=== PATIENT | female | born 1950 | race Caucasian/White ===

== ENCOUNTER 2023-05-17 18:37 | Inpatient (IN) | payer MEDICARE, MEDICAID, SELFPAY ==
--- NOTE | ~2023-05-17 | CT_ITS ---
EXAMINATION: CT brain wo con DATE: 05/18/2023 00:14 INDICATION: Right arm and leg not working right. TECHNIQUE: Computed tomography (CT) of the head was performed without intravenous contrast. The dose- length product was 756.00 mGy-cm. Automated exposure control and iterative reconstruction technique w ere employed. COMPARISON: None FINDINGS: Brain parenchymal volume is normal for age. There are scattered mild periventricular and linares bcortical white matter changes, most likely related to small vessel ischemic disease (microangiopathy ). No ventriculomegaly or midline shift. There is a large right periorbital hematoma with exophthalmo s of the right orbit. There is right orbital preseptal and postseptal fat stranding with hyperattenua tion which may be due to hematoma or edema. Possible superior ophthalmic vein enlargement. There is a right orbital floor fracture with herniation of fat and partial displacement of the inferi or rectus muscle into the maxillary sinus. IMPRESSION: 1. No acute intracranial abnormality. 2: Right orbital preseptal and postseptal fat stranding with hyperattenuation, suspicious for hematom a/edema. There is right periorbital soft tissue swelling with right orbital exophthalmos. Right orbit al floor fracture with herniation of fat and inferior rectus muscle. Reviewed, dictated and finalized at location A. ERCIAL PRODUCER IMPRESSION: 1. No acute intracranial abnormality. 2: Right orbital preseptal and postseptal fat stranding with hyperattenuation, suspicious for hematoma/edema. There is right periorbital soft tissue swelling with right orbital exophthalmos. Right orbital floor fracture with herniation o f fat and inferior rectus muscle.
--- NOTE | ~2023-05-17 | XR_ITS ---
EXAMINATION: XR chest 2V 05/18/2023 09:03 INDICATION: CVA. History of COPD. PROCEDURE: AP view of the chest COMPARISON: No prior studies for comparison. FINDINGS: The lungs are clear. Mild cardiomegaly. Pacemaker leads are in expected position. There are no pleural effusions. There is no pneumothorax suspected. IMPRESSION: 1: NO ACUTE CARDIOPULMONARY DISEASE. Reviewed, dictated and finalized at location A. ERCIAL SEWING INSTRUCTOR
--- NOTE | ~2023-05-17 | US_ITS ---
EXAMINATION: US carotid duplex BI DATE: 05/19/2023 12:19 INDICATION: CVA TECHNIQUE: Grayscale, color Doppler, and pulsed Doppler images of the cervical carotid arteries were obtained. The degree of vessel stenosis is placed in one of the following categories: normal, <50%, 5 0-69%, >=70% but less than near-occlusion, near-occlusion, or total occlusion. Note that percent sten osis relative to normal distal artery lumen diameter is indirectly measured from velocity measurement s as described by Gunnar, et al. Radiology 2003; 229:340-346. Notes: Normal: Peak systolic velocity <125 centimeters/sec and no plaque <50%. Peak systolic velocity <125 ( EDV <40; ICA/CCA PSV ratio <2.0; used these factors only a tandem lesions or low cardiac output or co ntralateral disease) 50-69 %: PSV 125-230 (EDV 40-100; ratio 2-4) >= 70% but less than near occlusion: PSV greater than 230 (EDV > 100; ratio> 4.0) Near Occlusion: PSV that is variable; markedly narrowed lumen Occlusion: Absent flow on color/spectral Doppler and no lumen on bradford scale. COMPARISON: None. FINDINGS: RIGHT: The right common carotid artery (CCA) peak systolic velocity (PSV) is 90 cm/s. The right internal car otid artery (ICA) PSV is 160 cm/s. The right ICA end-diastolic velocity (EDV) is 25 cm/s. The right I CA/CCA PSV ratio is 2.1. The external carotid artery (ECA) PSV is 82 cm/s. There is antegrade flow in the right vertebral artery. LEFT: The left CCA PSV is 109 cm/s. The left ICA PSV is 124 cm/s. The left ICA EDV is 26 cm/s. The left ICA /CCA PSV ratio is 1.2. The ECA PSV is 232 cm/s. There is antegrade flow in the left vertebral artery . IMPRESSION: 1. 50-69% stenosis in the right internal carotid artery by sonographic criteria. 2. Less than 50% stenosis in the left internal carotid artery by sonographic criteria. Reviewed, dictated and finalized at location A. T FINISHER IMPRESSION: 1. 50-69% stenosis in the right internal carotid artery by sonographic criteria . 2. Less than 50% stenosis in the left internal carotid artery by sonographic cr iteria.
[2023-05-17 18:38] VITALS: BP 142/67; PULSE 91; RESP 18; TEMP 36.1; O2SAT 94
[2023-05-17 22:49] VITALS: PULSE 93; RESP 16; O2SAT 92
[2023-05-17 23:00] VITALS: PULSE 82; RESP 19; O2SAT 94
[2023-05-17 23:15] VITALS: PULSE 90; RESP 17
--- NOTE | 2023-05-17 23:26 | PC.NURSE ---
ct non con per erp lucien hitchcock
[2023-05-17 23:51] VITALS: PULSE 90; RESP 22
[2023-05-18] VITALS (24 sets, daily range): BP systolic 130–190; BP diastolic 59–88; PULSE 79–97; RESP 12–29; TEMP 36.2–36.9; O2SAT 91–97
--- NOTE | 2023-05-18 | ECHO_ITS ---
Patient Info Name: Vanita Blackwood Age: 72 years : 1950 Gender: Female Ht: 66 in Wt: 149 lbs BSA: 1.78 m2 HR: 81 bpm BP: 171 / 65 mmHg Heart Rhythm: Sinus Rhythm Technical Quality: Fair Exam Date: 05/18/2023 11:24 AM Exam Location: Echo Lab Exam Room: [place] [address] Patient Status: Inpatient Admit Date: 05/18/2023 Staff Ordering Physician: Shell Oh Information Technology Consultant: Vanita Montes RDCS Attending Provider: Shell Oh Referring Physician: Adriano LEZAMA; Exam Type: CA echo doppler color flow Study Info Indications - RIGHT SIDE WEAKNESS CVA HX/O AFIB PPM Complete two-dimensional, color flow and Doppler transthoracic echocardiogram is performed. Summary 1. Complete two-dimensional, color flow and Doppler transthoracic echocardiogram is performed. 2. Left ventricular chamber dimension is normal. 3. Left ventricular systolic function is normal, estimated at >70%. 4. There is mildly increased left ventricular wall thickness. 5. The left ventricular diastolic function is grade I diastolic dysfunction. 6. Left atrial chamber dimension is mildly enlarged. 7. There is incomplete evaluation of the study but suspect at least mild mitral valve stenosis. 8. There is mild mitral valve regurgitation. 9. There is mild tricuspid valve regurgitation. 10. Moderate pulmonary hypertension, estimated pulmonary arterial systolic pressure is 51 mmHg. Left Ventricle Left ventricular chamber dimension is normal. Left ventricular systolic function is normal, estimated at >70%. There is mildly increased left ventricular wall thickness. The left ventricular diastolic function is grade I diastolic dysfunction. Right Ventricle Right ventricular chamber dimension is normal. Right ventricular systolic function is normal. Linear artifact in right ventricle suggestive of catheter(s), pacemaker lead(s), or ICD lead(s). Left Atria Left atrial chamber dimension is mildly enlarged. Right Atria Right atrial chamber dimension is mildly enlarged. Linear artifact in the right atrium suggestive of catheter(s), pacemaker lead(s), or ICD lead(s). Aortic Valve The aortic valve is trileaflet. There is mild aortic valve sclerosis. There is no aortic valve stenosis. There is no aortic valve regurgitation. Pulmonic Valve The pulmonic valve is not well visualized. There is trace pulmonic regurgitation. Mitral Valve The mitral valve has thickened leaflets. There is incomplete evaluation of the study but suspect at least mild mitral valve stenosis. There is mild mitral valve regurgitation. There is mild mitral valve calcification. The mitral valve annulus is severely calcified. Tricuspid Valve The tricuspid valve leaflets are normal. There is mild tricuspid valve regurgitation. Moderate pulmonary hypertension, estimated pulmonary arterial systolic pressure is 51 mmHg. Pericardium/Pleural The pericardium appears normal. There is trivial pericardial effusion. Inferior Vena Cava Normal inferior vena cava with >50% collapse upon inspiration consistent with normal right atrial pressure, 5 mmHg. Aorta The aortic root size at the sinus of Valsalva is normal. There is mild aortic atherosclerosis. Left Ventricular Outflow Tract Name Value Normal LVOT 2D LVOT Diameter 2.0 cm
--- NOTE | 2023-05-18 01:51 | ECG_ITS ---
Measurements Intervals [place] Rate: 81 P: 75 NH: 201 QRS: -15 QRSD: 87 T: 76 QT: 401 QTc: 468 Interpretive Statements SINUS RHYTHM WITH FIRST-DEGREE AV BLOCK NONSPECIFIC T-WAVE ABNORMALITY BORDERLINE ECG NO PREVIOUS ECG AVAILABLE FOR COMPARISON Electronically Signed On 05-18-2023 14:41:49 RETAIL STORE ASSOCIATE by Jose Martin Ruelas M.D.
[2023-05-18 02:29] LABS: Basophils Percent Auto 0.5 % (0.2-1.2); Eosinophils Absolute Auto 0.1 K/mm3 (0-0.3); Eosinophils Percent Auto 1.5 % (0-4.4); Hematocrit 37.2 % (37.0-47.0); Hemoglobin 11.6 g/dL (12.0-15.0); Immature Granulocyte Absolute 0.06 K/mm3 (0.00-0.031); Immature Granulocyte Percent A 0.8 % (0-0.5); Lymphocytes Absolute Auto 2.45 K/mm3 (0.9-3.2); Lymphocytes Percent Auto 32.6 % (18.3-44.2); Mean Corpuscular HGB Conc 31.2 g/dl (32-36); Mean Corpuscular Hemoglobin 29.9 pg (26-34); Mean Corpuscular Volume 95.9 fl (80-100); Mean Platelet Volume 10.5 fl (7.4-10.4); Monocytes Absolute Auto 0.4 K/mm3 (0.1-0.6); Monocytes Percent Auto 5.2 % (2.6-8.5); Neutrophils Absolute Auto 4.5 K/mm3 (1.3-6.7); Neutrophils Percent Auto 59.4 % (45.5-73.1); Platelet Count Result 225 k/mm3 (150-375); Red Blood Count 3.88 M/mm3 (4.2-5.4); Red Cell Distribution Width 15.4 % (11.5-14.5); White Blood Count 7.5 K/mm3 (4.5-10.0)
[2023-05-18 02:40] LABS: INR 0.9
[2023-05-18 02:41] LABS: Alanine Aminotransferase 21 U/L (6-35); Albumin Level 3.6 g/dL (3.5-5.1); Alkaline Phosphatase 151 U/L (38-126); Anion Gap 3 mmol/L (8-16); Aspartate Amino Transferase 57 U/L (14-36); Bilirubin,Total 0.5 mg/dL (0.2-1.3); Blood Urea Nitrogen 17 mg/dL (7-17); Calcium 9.7 mg/dL (8.4-10.2); Carbon Dioxide 32 mmol/L (22-30); Chloride 105 mmol/L (98-107); Estimated CRCL calculation 33 ml/min; Estimated Glomerular Filt Rate 40; Glucose 112 mg/dL (65-110); Potassium 4.3 mmol/L (3.4-5.0); Sodium 140 mmol/L (137-145)
[2023-05-18 02:50] LABS: Partial Thromboplastin Time 31.5 SECONDS (22.3-36.8)
[2023-05-18 02:53] LABS: Appearance Urine Turbid (Clear); Bacteria Urine 4+ /hpf; Bilirubin Urine Negative (Negative); Blood Urine Negative (Negative); Color Urine Yellow (Yellow); Glucose Urine UA Negative (Negative); Ketones Urine Negative (Negative); Leukocyte Esterase Ur Trace LEU/UL (Negative); Need Manual Microscopic Reviewed; Nitrate Urine Negative (Negative); Non Pathogenic Casts 0-2; Protein Urine 3+ mg/dL (Negative); RBC Urine >100 /hpf (0-2); Specific Grav Ur 1.016 (1.001-1.035); Squamous Epithelial Cell Urine Few /hpf (Few); Urobilinogen Urine 0.2 mg/dL (<2.0); WBC Urine 51-100 /hpf; pH Urine 5.5 (5.0-9.0)
[2023-05-18 02:54] LABS: Add Urine Microscopic? YES
--- NOTE | 2023-05-18 04:24 | ED.GENADULT ---
HPI - General Adult General Chief complaint: Fall Stated complaint: vertigo/htn/ extremity swelling Time Seen by Provider: 05/18/23 01:12 History of Present Illness HPI narrative: This is a 72-year-old female presenting ED with chief complaint of right-sided weakness. Patient's says that at 11:00 a.m. she has. Past an episode of vertigo. Then when she got up she was unable to move her right arm and right leg. She was able to get to her bed and laid down but when she woke the symptoms had not resolved. She then came to the emergency room for evaluation. Patient is currently complaining of right arm clumsiness and right leg weakness. Related Data Home Medications Medication Instructions Recorded Confirmed No Home Medications 05/18/23 Allergies Allergy/AdvReac Type Severity Reaction Status Date / Time budesonide Allergy Anaphylaxis Verified 05/18/23 04:17 iohexol Allergy Anaphylaxis Verified 05/18/23 04:17 [From contrast - CT, X-RAY] Exam Narrative: APPEARANCE: No apparent distress. Head: atraumatic. EYES: EOMI, NOSE: Atraumatic NECK: Trachea midline RESPIRATORY: No increased rate of breathing CARDIOVASCULAR: RRR, edema of the right upper extremity ABDOMINAL: Non-distended MUSCULOSKELETAl: No obvious deformities NEURO: Alert.[facility] blood SKIN:: Warm, dry. Normal color PSYCHIATRIC: Normal affect NIH Stroke Scale/Score (NIHSS) from [email or web address] on 05/18/2023 All calculations should be rechecked by clinician prior to use RESULT SUMMARY: 4 points NIH Stroke Scale INPUTS: 1A: Level of consciousness ?> 0 = Alert; keenly responsive 1B: Ask month and age ?> 0 = Both questions right 1C: 'Blink eyes' & 'squeeze hands' ?> 0 = Performs both tasks 2: Horizontal extraocular movements ?> 0 = Normal 3: Visual simmons ?> 0 = No visual loss 4: Facial palsy ?> 0 = Normal symmetry 5A: Left arm motor drift ?> 0 = No drift for 10 seconds 5B: Right arm motor drift ?> 1 = Drift, but doesn't hit bed 6A: Left leg motor drift ?> 0 = No drift for 5 seconds 6B: Right leg motor drift ?> 2 = Some effort against gravity 7: Limb Ataxia ?> 1 = Ataxia in 1 Limb 8: Sensation ?> 0 = Normal; no sensory loss 9: Language/aphasia ?> 0 = Normal; no aphasia 10: Dysarthria ?> 0 = Normal 11: Extinction/inattention ?> 0 = No abnormality Course Vital Signs Vital signs: Vital Signs Temperature 97.0 F L 05/17/23 18:38 Pulse Rate 91 05/17/23 18:38 Respiratory Rate 18 05/17/23 18:38 Blood Pressure 142/67 H 05/17/23 18:38 Pulse Oximetry 94 05/17/23 18:38 Oxygen Delivery Room Air 05/17/23 18:38 Temperature 97.0 F L 05/17/23 18:38 Pulse Rate 91 05/17/23 18:38 Respiratory Rate 18 05/17/23 18:38 Blood Pressure 142/67 H 05/17/23 18:38 Pulse Oximetry 94 05/17/23 18:38 Oxygen Delivery Room Air 05/17/23 18:38 Medical Decision Making MDM Narrative Medical decision making narrative: -Course: 72-year-old female presenting ED with chief complaint right-sided weakness. NIH of 4 on arrival. last known normal 11:[address] showed no acute findings. She does have some chronic issues of her right eye that has been going on since last August. Essentially blind in that eye. Patient refused CTA due to contrast allergy. Patient was given aspirin will be admitted to the hospital for further management. Patient also have UTI. Started on ceftriaxone. -DDX includes but is not limited to: TIA, CVA -Co-morbidities complicating care: patient stopped taking all prescribed medications about year ago. History of cancer -Independent interpretation of studies: CBC normal. Metabolic panel within normal limits. Urine not indicative infection. CT the head showed no intracranial findings. Chronic findings of the right eye noted. Independent EKG interpretation: Rhythm [sinus], Rate [81], [place] -[normal], [place] -[normal], QRS [narrow], QTC [normal], T waves -[negative for concerning inversions], ST Segments
[2023-05-18] MEDS: ONDANSETRON INJ 4 MG/2 ML VIAL IV PUSH (05:29)
--- NOTE | 2023-05-18 08:13 | PM.IMHP ---
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 Pt's primary care for all medical needs is usually performed at [facility], so we do not have a full history on her and one was not done to this point by the ER staff. The pt endorses to me her history and states that she chose to stop all medical care last September after [facility] refused to fix my eye. This includes medications for her DM, HTN, HLD, and her Chemotherapy. Her current HPI of presenting illness is told that her last known well was at 11:00AM on 05/17/23 when she was sitting at home in her chair and she started having what she calls a dizzy spell. She attempted to get up and she was weak in the right leg and right arm causing her to fall to her knees. She was eventually able to get to her bed to lie down, but when she woke up hours later she had lost control of her right arm and right leg and could not bear weight on the right leg without again falling to her knees. She called 911 for transport to the ER. She tells me that she has had these dizzy spells for the past week and a half, and has had them everyday. The duration of the dizziness has been up to 5 hours, it is relieved usually by laying down, and it is accompanied by a headache and nausea. This time it did not go away and it concerned her prompting her presentation. In the ER, CT Brain was performed and the results are pending still. Pt was not agreeable to having CTA brain and carotids done as she has had reported anaphylaxis to contrast in the past. ED physician ordered an MRI and consulted Neurology and presented her to the Hospitalist service at this time for admission and further management. Currently she is resting on her left side and does not appear to be in any acute distress. She does acknowledge that she has a headache and remains dizzy. Her labs in ER were significant for UTI that she received a dose of Rocephin for and culture is pending. The remainder of her labs do not appear remarkable that were performed in the ER including glucose, renal function is only mildly out of normal range and she has only a mild anemia. Electrolytes are unremarkable. EKG shows NSR 81 bpm without any ectopy or ischemia. This pt is pleasant, and acknowledges that she knows she is terminal and that she wants to have a good quality of life with what she has left, but she is noted to be a Full Code in the setting that she herself acknowledges she is terminal and stopped all of her medications 7 months ago for all chronic health conditions. I had a kayla conversation with her regarding this and she acknowledges that she doesn't want to be on a lot of medications. I advised that she has multiple chronic conditions that will require treatment with multiple different medications in order to control and to maintain the condition as well as to decrease her risk factors. The pt states that she is agreeable to receiving treatment here and wants to remain a full code. I think she would best be served by Hospice or Palliative care as her prognosis is very poor, however, we will comply with pt's wishes and start full treatment at this time. She is aware that Full Code means CPR and Intubation if necessary. Review of Systems Review of Systems: All systems reviewed & are unremarkable except as noted in HPI and below [facility] Past Medical History Medical History (Updated 05/18/23 @ 09:01 by DONYA Villalpando) Chronic kidney disease Diabetes mellitus Hyperl
--- NOTE | 2023-05-18 08:21 | ADMGEN ---
This patient, Vanita Blackwood, was admitted to Virtual Bed 3rd Floor-2. Patient/family oriented to hospital policies and general routines including ID bracelet, bed and alarms, visiting hours, pain management, procedures, bathroom and other care routines, personal items, smoking policy, room service/diet, and visiting hours. Information on how to activate the Rapid Response Team has been discussed. Patient/Family are encouraged to report perceived risks to care and to ask questions if they do not understand what they are told or what they should do. currently in ED, will be transferred to floor soon.
[2023-05-18 08:50] LABS: Cholesterol 211 mg/dL (0-200); HDL Direct 36 mg/dL; Triglycerides 247 mg/dL (<150)
[2023-05-18 09:02] LABS: Glucose Point of Care 127 mg/dl (65-105)
[2023-05-18 09:04] LABS: LDL Cholesterol Direct 116 mg/dL
[2023-05-18 09:07] LABS: Troponin I 0.029 ng/mL (0.000-0.034)
[2023-05-18 10:01] LABS: Folic Acid 15.4 ng/mL (2.76->20)
[2023-05-18] MEDS: SODIUM CHLORIDE 0.9% IV 1,000 ML 100 ML IV CONT (11:06)
[2023-05-18 11:25] LABS: Vitamin D 25 Hydroxy < 12.8 ng/mL
--- NOTE | 2023-05-18 11:49 | PC.NURSE ---
Pt is NPO until swallow study, per hospitalist, PO meds were held this AM.
--- NOTE | 2023-05-18 13:48 | PCSTNOTE ---
Bedside swallowing evaluation completed. Patient was seen sitting upright in bed with head of bed elevated. Cursory oral peripheral examination results within functional limits. Per patient she eats and drinks anything she likes without difficulty at home. Trials of thin liquid by spoon and straw; pureed consistency by spoon, and solid consistency by hand (sandwich) were presented and patient was able to chew and swallow without difficulty. No signs of aspiration observed. Based on these findings the following recommendations are made: regular diet (level 7) with thin liquids (level 0). No further speech therapy is recommended. Please note that silent aspiration cannot be ruled out at bedside and can be evaluated with a modified barium swallow study. Thank you for the referral of this patient.
--- NOTE | 2023-05-18 13:53 | ADMGEN ---
This patient, Vanita Blackwood, was admitted to Medical Room 254-01. Patient/family oriented to hospital policies and general routines including ID bracelet, bed and alarms, visiting hours, pain management, procedures, bathroom and other care routines, personal items, smoking policy, room service/diet, and visiting hours. Information on how to activate the Rapid Response Team has been discussed. Patient/Family are encouraged to report perceived risks to care and to ask questions if they do not understand what they are told or what they should do.
[2023-05-18] MEDS: IPRATROPIUM 0.5 MG/ALBUTEROL SULFATE 2.5 MG AMPUL.NEB 3 ML INHALATION ×2 (13:57→20:52)
--- NOTE | 2023-05-18 14:11 | PCOTNOTE ---
The patient initial evaluation was not able to be completed on 05/18/2023 due to patient just arriving on floor with high BP per RN. RN notes best to wait until tomorrow to try and let administrative aide with leveling BP. Will plan to complete evaluation when able.
[2023-05-18] MEDS: hydrALAZINE HCL 20 MG/ML VIAL 10 MG IV PUSH (14:55)
[2023-05-18 15:06] LABS: Glucose Point of Care 139 mg/dl (65-105)
--- NOTE | 2023-05-18 15:11 | WPDNEURCNPN ---
Assessment and Plan Assessment and plan (1) Metastatic disease: Code(s): C79.9 - Secondary malignant neoplasm of unspecified site Status: Chronic (2) Diabetes mellitus: Code(s): E11.9 - Type 2 diabetes mellitus without complications Status: Chronic (3) Chronic kidney disease: Code(s): N18.9 - Chronic kidney disease, unspecified Status: Chronic (4) Acute CVA (cerebrovascular accident): Code(s): I63.9 - Cerebral infarction, unspecified Status: Acute Plan 1. CVA 2. By history metastatic disease for which patient has been receiving treatment at [facility] with last chemotherapy in September of 2022 but none since then decision regarding the discontinuation of the medication 3. Diabetes mellitus with history of no treatment since September of last year 4. Chronic renal disease with recent acute urinary tract infection. We can consider the MRI of the brain if she allows for the sake of the status of the brain itself but otherwise she should be referred to the hospice further management accordingly Consult date: 05/18/23 HPI: Vanita Blackwood is a 72 year old femaleAdmitted to the hospital through the emergency room for the complaints of right-sided weakness since 11:00 a.m. reportedly when she got up she was unable to move her right upper extremity and right lower extremity she was able to get to her bed and laid down but when she woke up symptoms had not resolved when she came to the emergency room she was complaining of right upper extremity clumsiness and right lower extremity weakness. She was not taking any medications. An evaluation in the emergency room was without any abnormal general physical findings her vital signs were normal. Patient had not taken any medication for almost a year with history of cancer on evaluation she was found to have UTI, negative CT scan of the head, normal EKG, without any atrial fibrillation. As per the review of the medical record patient has ongoing history of chronic kidney disease with history of renal tubular close his, metastatic breast cancer with spread to the bones, liver, lung, and behind the right eye leaving her legally blind in the right eye with chronic droop of the right upper eyelid she does have ongoing history of chronic tobacco abuse and again read documented that she has stopped all the medication September of 2022. As per the review of the further notes she attempted to get up and she was weak in her right lower extremity right upper extremity causing her to fall to her knees she was eventually able to get to her bed to lie down but when she woke up hours later she had lost control of her right upper and right lower extremity and was unable to bear weight on the right lower extremity she has had several dizzy spells in the past which are usually relieved by laying down but accompanied by the headaches and nausea CTA could not be done as she was not agreeable with CT of the head was performed the CTA was not done because she was probably allergic to contrast as per her statement she did complain of headache and dizziness at the time of initial evaluation he was found to have UTI was started on Rocephin patient acknowledged that she has determined but she wants to have good quality of life states she is a full code status and her all medications were discontinued about 7 months ago she does have a history of 50 years smoked, currently everyday smoker, she is not allergic to any medications, vital signs are stable, and initial exam in the ER and subsequently documented to have decreased strength on the right side. The of the head documented right orbital preseptal and postseptal fat stranding with hyperattenuation suspicious for hematoma or edema but with a right periorbital soft tissue swelling and right orbital exophthalmos with right orbital floor fracture with herniation of fat and inferior rectus muscle. REPLACED BY [facility] Past Medical History Medical History (Reviewed
--- NOTE | 2023-05-18 15:13 | PCPTNOTE ---
The patient initial evaluation was not able to be completed on 05/18/2023 due to patient just arriving on floor with high BP per RN. RN notes best to wait until tomorrow to try and let surgical aides teacher with leveling BP. Will plan to complete evaluation when able.
[2023-05-18 20:20] LABS: Glucose Point of Care 165 mg/dl (65-105)
[2023-05-19] VITALS (18 sets, daily range): BP systolic 146–175; BP diastolic 50–60; PULSE 72–108; RESP 16–20; TEMP 35.9–36.3; O2SAT 91–96
[2023-05-19] MEDS: SODIUM CHLORIDE 0.9% IV 1,000 ML 100 ML IV CONT ×2 (00:23→11:47)
[2023-05-19 00:25] LABS: Glucose Point of Care 122 mg/dl (65-105)
[2023-05-19] MEDS: IPRATROPIUM 0.5 MG/ALBUTEROL SULFATE 2.5 MG AMPUL.NEB 3 ML INHALATION ×4 (02:30→19:22)
[2023-05-19 05:15] LABS: Basophils Percent Auto 0.4 % (0.2-1.2); Eosinophils Absolute Auto 0.1 K/mm3 (0-0.3); Eosinophils Percent Auto 1.4 % (0-4.4); Hematocrit 31.7 % (37.0-47.0); Hemoglobin 9.6 g/dL (12.0-15.0); Immature Granulocyte Absolute 0.04 K/mm3 (0.00-0.031); Immature Granulocyte Percent A 0.8 % (0-0.5); Lymphocytes Percent Auto 29.3 % (18.3-44.2); Mean Corpuscular HGB Conc 30.3 g/dl (32-36); Mean Corpuscular Hemoglobin 29.9 pg (26-34); Mean Corpuscular Volume 98.8 fl (80-100); Mean Platelet Volume 10.5 fl (7.4-10.4); Monocytes Absolute Auto 0.2 K/mm3 (0.1-0.6); Monocytes Percent Auto 4.5 % (2.6-8.5); Neutrophils Absolute Auto 3.3 K/mm3 (1.3-6.7); Neutrophils Percent Auto 63.6 % (45.5-73.1); Platelet Count Result 176 k/mm3 (150-375); Red Blood Count 3.21 M/mm3 (4.2-5.4); Red Cell Distribution Width 15.3 % (11.5-14.5); White Blood Count 5.1 K/mm3 (4.5-10.0)
[2023-05-19 05:33] LABS: Alanine Aminotransferase 16 U/L (6-35); Alkaline Phosphatase 125 U/L (38-126); Anion Gap 8 mmol/L (8-16); Aspartate Amino Transferase 46 U/L (14-36); Bilirubin,Total 0.4 mg/dL (0.2-1.3); Blood Urea Nitrogen 17 mg/dL (7-17); Calcium 8.6 mg/dL (8.4-10.2); Carbon Dioxide 22 mmol/L (22-30); Chloride 107 mmol/L (98-107); Estimated CRCL calculation 32 ml/min; Estimated Glomerular Filt Rate 40; Glucose 111 mg/dL (65-110); Magnesium 1.9 mg/dL (1.6-2.3); Potassium 3.5 mmol/L (3.4-5.0); Sodium 137 mmol/L (137-145)
[2023-05-19 06:41] LABS: Glucose Point of Care 108 mg/dl (65-105)
[2023-05-19] MEDS: ATORVASTATIN 40 MG TABLET 80 MG PO (08:22)
[2023-05-19] MEDS: NICOTINE (*PBKC) 21 MG PATCH 1 PATCH TRANSDERM (08:22)
--- NOTE | 2023-05-19 08:33 | P.PNIM_ITS ---
Progress Note: A&P Assessment and Plan (1) Acute CVA (cerebrovascular accident): Code(s): I63.9 - Cerebral infarction, unspecified Status: Acute Assessment and Plan: * Last known well 11:00 AM on 05/17/23. Presented to ER 13 hours later. * Telemetry * Neuro checks q4 Hrs * Consult Neurology * MRI brain and brainstem * ECHO * Carotid Dopplers * CXR ordered * Pt refused CTA head and neck as she has anaphylaxis to contrast. * Check fasting lipids, A1C, B12, Vitamin D, Trop and TSH * Allow permissive hypertension for now. * Bedside swallow eval with speech. * PT and OT evaluation * NPO for now. * Start IVF of NS at 100 ml/hr. * Start High intensity statin with Atorvastatin 80 mg po daily. * Start ASA 81 mg daily after results of CT brain without contrast result. * Defer to Neurology the starting of Plavix, but suspect it will be appropriate for pt. * Pt with overall poor prognosis. 05/19: * Started patient on plavix * Plan is to discharge to home on palliative care * Past swallow evaluation resumed diet (2) Tobacco abuse: Code(s): Z72.0 - Tobacco use Status: Chronic Assessment and Plan: * Nicotine Patch ordered. (3) Metastatic disease: Code(s): C79.9 - Secondary malignant neoplasm of unspecified site Status: Chronic Assessment and Plan: * Unknown primary site, but she states she has cancer in 15 different places. In short, her history describes locations of breast, liver, lung, bone and behind the right eye. * Pt reports prior treatment at [facility] w/last chemo treatment in September 2022. None since. * Will request pt records from [facility]. (4) Diabetes mellitus: Code(s): E11.9 - Type 2 diabetes mellitus without complications Status: Chronic Assessment and Plan: * Accu-Cheks a.c. HS * sliding scale insulin * hold oral diabetic medications * resume patient's home long-acting * Hemoglobin A1c pending * Diabetic diet * consult to dietitian * encourage lifestyle modifications and weight loss * Optimize Jf inhibitors and statins. * Watch for hypoglycemia/hypoglycemic protocol ordered (5) Hyperlipidemia: Code(s): E78.5 - Hyperlipidemia, unspecified Status: Chronic Assessment and Plan: * Unknown prior treatment. * Check Fasting Lipids. * Start high dose Atorvastatin 80 mg daily in setting of Acute CVA to reduce cardiovascular risk. * Encourage heart healthy and diabetic appropriate diet. (6) Hypertension: Code(s): I10 - Essential (primary) hypertension Status: Chronic Assessment and Plan: * Unknown prior treatment. * Currently allowing Permissive Hypertension in the setting of Acute CVA. If SBP > 180 or DBP > 100 will intervene. * Monitor Vital sign trend. (7) Chronic kidney disease: Code(s): N18.9 - Chronic kidney disease, unspecified Status: Chronic Assessment and Plan: * Unknown degree of prior CKD. 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 * Current Creatinine and BUN are 1.30/17 respectively. * Trend renal function with daily labs. (8) Urinary tract infection: Code(s): N39.0 - Urinary tract infection, site not specified Status: Acute Assessment and Plan: * As evidenced by UA that shows turbidity, 3+ Protein, trace Leuks, >100 RBC's and 51-100 WBC's with 4+ Bacteria and only a few squamous epithelials. * Urine culture pending * Start Rocephin 1GM Q 24 hours pending culture. (9) Noncompliance
--- NOTE | 2023-05-19 08:33 | PM.IMPN ---
Progress Note: A&P Assessment and Plan (1) Acute CVA (cerebrovascular accident): Code(s): I63.9 - Cerebral infarction, unspecified Status: Acute Assessment and Plan: Last known well 11:00 AM on 05/17/23. Presented to ER 13 hours later. Telemetry Neuro checks q4 Hrs Consult Neurology MRI brain and brainstem ECHO Carotid Dopplers CXR ordered Pt refused CTA head and neck as she has anaphylaxis to contrast. Check fasting lipids, A1C, B12, Vitamin D, Trop and TSH Allow permissive hypertension for now. Bedside swallow eval with speech. PT and OT evaluation NPO for now. Start IVF of NS at 100 ml/hr. Start High intensity statin with Atorvastatin 80 mg po daily. Start ASA 81 mg daily after results of CT brain without contrast result. Defer to Neurology the starting of Plavix, but suspect it will be appropriate for pt. Pt with overall poor prognosis. 05/19: Started patient on plavix Plan is to discharge to home on palliative care Past swallow evaluation resumed diet (2) Tobacco abuse: Code(s): Z72.0 - Tobacco use Status: Chronic Assessment and Plan: Nicotine Patch ordered. (3) Metastatic disease: Code(s): C79.9 - Secondary malignant neoplasm of unspecified site Status: Chronic Assessment and Plan: Unknown primary site, but she states she has cancer in 15 different places. In short, her history describes locations of breast, liver, lung, bone and behind the right eye. Pt reports prior treatment at [facility] w/last chemo treatment in September 2022. None since. Will request pt records from [facility]. (4) Diabetes mellitus: Code(s): E11.9 - Type 2 diabetes mellitus without complications Status: Chronic Assessment and Plan: Accu-Cheks a.c. HS sliding scale insulin hold oral diabetic medications resume patient's home long-acting Hemoglobin A1c pending Diabetic diet consult to dietitian encourage lifestyle modifications and weight loss Optimize Jf inhibitors and statins. Watch for hypoglycemia/hypoglycemic protocol ordered (5) Hyperlipidemia: Code(s): E78.5 - Hyperlipidemia, unspecified Status: Chronic Assessment and Plan: Unknown prior treatment. Check Fasting Lipids. Start high dose Atorvastatin 80 mg daily in setting of Acute CVA to reduce cardiovascular risk. Encourage heart healthy and diabetic appropriate diet. (6) Hypertension: Code(s): I10 - Essential (primary) hypertension Status: Chronic Assessment and Plan: Unknown prior treatment. Currently allowing Permissive Hypertension in the setting of Acute CVA. If SBP > 180 or DBP > 100 will intervene. Monitor Vital sign trend. (7) Chronic kidney disease: Code(s): N18.9 - Chronic kidney disease, unspecified Status: Chronic Assessment and Plan: Unknown degree of prior CKD. 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 Current Creatinine and BUN are 1.30/17 respectively. Trend renal function with daily labs. (8) Urinary tract infection: Code(s): N39.0 - Urinary tract infection, site not specified Status: Acute Assessment and Plan: As evidenced by UA that shows turbidity, 3+ Protein, trace Leuks, >100 RBC's and 51-100 WBC's with 4+ Bacteria and only a few squamous epithelials. Urine culture pending Start Rocephin 1GM Q 24 hours pending culture. (9) Noncompliance: Code(s): Z91.199 - Patient's noncompliance with other medical treatment and regimen due to unspecified reason Status: Chronic Assessment and Plan: As stated in HPI, this pt personally and independently chose to stop all of her medications for her chronic health disparities as well as her Cancer last September 2022. Her reason for this as explained to me is, Because they wouldn't fix my eye. She acknowledges that she is terminal with her pro
[2023-05-19] MEDS: ONDANSETRON INJ 4 MG/2 ML VIAL IV PUSH (11:44)
[2023-05-19 13:07] LABS: Glucose Point of Care 176 mg/dl (65-105)
[2023-05-19 14:04] LABS: Hemoglobin A1C 8.6 % (<5.7)
[2023-05-19 17:31] LABS: Glucose Point of Care 241 mg/dl (65-105)
[2023-05-19 21:56] LABS: Glucose Point of Care 214 mg/dl (65-105)
[2023-05-20] VITALS (22 sets, daily range): BP systolic 133–192; BP diastolic 46–82; PULSE 68–99; RESP 16–20; TEMP 35.8–37; O2SAT 92–100; BMI 27.3
[2023-05-20] MEDS: hydrALAZINE HCL 20 MG/ML VIAL 10 MG IV PUSH (00:25)
[2023-05-20] MEDS: IPRATROPIUM 0.5 MG/ALBUTEROL SULFATE 2.5 MG AMPUL.NEB 3 ML INHALATION ×4 (01:34→21:00)
[2023-05-20 05:18] LABS: Hematocrit 35.1 % (37.0-47.0); Hemoglobin 10.8 g/dL (12.0-15.0); Mean Corpuscular HGB Conc 30.8 g/dl (32-36); Mean Corpuscular Hemoglobin 29.4 pg (26-34); Mean Corpuscular Volume 95.6 fl (80-100); Mean Platelet Volume 10.8 fl (7.4-10.4); Platelet Count Result 204 k/mm3 (150-375); Red Blood Count 3.67 M/mm3 (4.2-5.4); Red Cell Distribution Width 15.6 % (11.5-14.5); White Blood Count 5.4 K/mm3 (4.5-10.0)
[2023-05-20 05:34] LABS: Alanine Aminotransferase 19 U/L (6-35); Albumin Level 3.5 g/dL (3.5-5.1); Alkaline Phosphatase 170 U/L (38-126); Anion Gap 5 mmol/L (8-16); Aspartate Amino Transferase 54 U/L (14-36); Bilirubin,Total 0.4 mg/dL (0.2-1.3); Blood Urea Nitrogen 17 mg/dL (7-17); Calcium 9.2 mg/dL (8.4-10.2); Carbon Dioxide 28 mmol/L (22-30); Chloride 106 mmol/L (98-107); Estimated CRCL calculation 32 ml/min; Estimated Glomerular Filt Rate 40; Glucose 167 mg/dL (65-110); Potassium 3.6 mmol/L (3.4-5.0); Sodium 139 mmol/L (137-145)
[2023-05-20] MEDS: ONDANSETRON INJ 4 MG/2 ML VIAL IV PUSH (07:41)
[2023-05-20] MEDS: NICOTINE (*PBKC) 21 MG PATCH 1 PATCH TRANSDERM (07:41)
[2023-05-20] MEDS: CLOPIDOGREL BISULFATE 75 MG TABLET PO (07:42)
[2023-05-20] MEDS: ATORVASTATIN 40 MG TABLET 80 MG PO (07:42)
[2023-05-20 08:03] LABS: Glucose Point of Care 133 mg/dl (65-105)
[2023-05-20] MEDS: METOPROLOL TARTRATE 25 MG TABLET PO ×2 (09:01→17:00)
[2023-05-20 12:43] LABS: Glucose Point of Care 171 mg/dl (65-105)
--- NOTE | 2023-05-20 12:49 | P.PNIM_ITS ---
Progress Note: A&P Assessment and Plan (1) Acute CVA (cerebrovascular accident): Code(s): I63.9 - Cerebral infarction, unspecified Status: Acute Assessment and Plan: * Last known well 11:00 AM on 05/17/23. Presented to ER 13 hours later. * Telemetry * Neuro checks q4 Hrs * Consult Neurology * MRI brain and brainstem * ECHO * Carotid Dopplers * CXR ordered * Pt refused CTA head and neck as she has anaphylaxis to contrast. * Check fasting lipids, A1C, B12, Vitamin D, Trop and TSH * Allow permissive hypertension for now. * Bedside swallow eval with speech. * PT and OT evaluation * NPO for now. * Start IVF of NS at 100 ml/hr. * Start High intensity statin with Atorvastatin 80 mg po daily. * Start ASA 81 mg daily after results of CT brain without contrast result. * Defer to Neurology the starting of Plavix, but suspect it will be appropriate for pt. * Pt with overall poor prognosis. 05/19: * Started patient on plavix * Plan is to discharge to home on palliative care * Past swallow evaluation resumed diet (2) Tobacco abuse: Code(s): Z72.0 - Tobacco use Status: Chronic Assessment and Plan: * Nicotine Patch ordered. (3) Metastatic disease: Code(s): C79.9 - Secondary malignant neoplasm of unspecified site Status: Chronic Assessment and Plan: * Unknown primary site, but she states she has cancer in 15 different places. In short, her history describes locations of breast, liver, lung, bone and behind the right eye. * Pt reports prior treatment at [facility] w/last chemo treatment in September 2022. None since. * Will request pt records from [facility]. * Patient wants to follow-up with her oncologist after discharge * Requested palliative care services patient provided list (4) Diabetes mellitus: Code(s): E11.9 - Type 2 diabetes mellitus without complications Status: Chronic Assessment and Plan: * Accu-Cheks a.c. HS * sliding scale insulin * hold oral diabetic medications * resume patient's home long-acting * Hemoglobin A1c 8.6 * Diabetic diet * consult to dietitian * encourage lifestyle modifications and weight loss * Optimize Jf inhibitors and statins. * Watch for hypoglycemia/hypoglycemic protocol ordered * Patient will need to be discharged on insulin (5) Hyperlipidemia: Code(s): E78.5 - Hyperlipidemia, unspecified Status: Chronic Assessment and Plan: * Unknown prior treatment. * Check Fasting Lipids. * Start high dose Atorvastatin 80 mg daily in setting of Acute CVA to reduce cardiovascular risk. * Encourage heart healthy and diabetic appropriate diet. (6) Hypertension: Code(s): I10 - Essential (primary) hypertension Status: Chronic Assessment and Plan: * Unknown prior treatment. * Currently allowing Permissive Hypertension in the setting of Acute CVA. If SBP > 180 or DBP > 100 will intervene. * Monitor Vital sign trend. (7) Chronic kidney disease: Code(s): N18.9 - Chronic kidney disease, unspecified Status: Chronic Assessment and Plan: * Unknown degree of prior CKD. 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 * Current Creatinine and BUN are 1.30/17 respectively. * Trend renal function with daily labs. (8) Urinary tract infection: Code(s): N39.0 - Urinary tract infection, site not specified Status: Acute Assessment and Plan: * As evidenced by UA that shows turbidity, 3+ Protein, trace Leuks, >100 RBC's
--- NOTE | 2023-05-20 12:49 | PM.IMPN ---
Progress Note: A&P Assessment and Plan (1) Acute CVA (cerebrovascular accident): Code(s): I63.9 - Cerebral infarction, unspecified Status: Acute Assessment and Plan: Last known well 11:00 AM on 05/17/23. Presented to ER 13 hours later. Telemetry Neuro checks q4 Hrs Consult Neurology MRI brain and brainstem ECHO Carotid Dopplers CXR ordered Pt refused CTA head and neck as she has anaphylaxis to contrast. Check fasting lipids, A1C, B12, Vitamin D, Trop and TSH Allow permissive hypertension for now. Bedside swallow eval with speech. PT and OT evaluation NPO for now. Start IVF of NS at 100 ml/hr. Start High intensity statin with Atorvastatin 80 mg po daily. Start ASA 81 mg daily after results of CT brain without contrast result. Defer to Neurology the starting of Plavix, but suspect it will be appropriate for pt. Pt with overall poor prognosis. 05/19: Started patient on plavix Plan is to discharge to home on palliative care Past swallow evaluation resumed diet (2) Tobacco abuse: Code(s): Z72.0 - Tobacco use Status: Chronic Assessment and Plan: Nicotine Patch ordered. (3) Metastatic disease: Code(s): C79.9 - Secondary malignant neoplasm of unspecified site Status: Chronic Assessment and Plan: Unknown primary site, but she states she has cancer in 15 different places. In short, her history describes locations of breast, liver, lung, bone and behind the right eye. Pt reports prior treatment at [facility] w/last chemo treatment in September 2022. None since. Will request pt records from [facility]. Patient wants to follow-up with her oncologist after discharge Requested palliative care services patient provided list (4) Diabetes mellitus: Code(s): E11.9 - Type 2 diabetes mellitus without complications Status: Chronic Assessment and Plan: Accu-Cheks a.c. HS sliding scale insulin hold oral diabetic medications resume patient's home long-acting Hemoglobin A1c 8.6 Diabetic diet consult to dietitian encourage lifestyle modifications and weight loss Optimize Jf inhibitors and statins. Watch for hypoglycemia/hypoglycemic protocol ordered Patient will need to be discharged on insulin (5) Hyperlipidemia: Code(s): E78.5 - Hyperlipidemia, unspecified Status: Chronic Assessment and Plan: Unknown prior treatment. Check Fasting Lipids. Start high dose Atorvastatin 80 mg daily in setting of Acute CVA to reduce cardiovascular risk. Encourage heart healthy and diabetic appropriate diet. (6) Hypertension: Code(s): I10 - Essential (primary) hypertension Status: Chronic Assessment and Plan: Unknown prior treatment. Currently allowing Permissive Hypertension in the setting of Acute CVA. If SBP > 180 or DBP > 100 will intervene. Monitor Vital sign trend. (7) Chronic kidney disease: Code(s): N18.9 - Chronic kidney disease, unspecified Status: Chronic Assessment and Plan: Unknown degree of prior CKD. 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 Current Creatinine and BUN are 1.30/17 respectively. Trend renal function with daily labs. (8) Urinary tract infection: Code(s): N39.0 - Urinary tract infection, site not specified Status: Acute Assessment and Plan: As evidenced by UA that shows turbidity, 3+ Protein, trace Leuks, >100 RBC's and 51-100 WBC's with 4+ Bacteria and only a few squamous epithelials. Urine culture pending Start Rocephin 1GM Q 24 hours pending culture. (9) Noncompliance: Code(s): Z91.199 - Patient's noncompliance with other medical treatment and regimen due to unspecified reason Status: Chronic Assessment and Plan: As stated in HPI, this pt personally and independently chose to stop all of her medications for her chronic health disparities as w
--- NOTE | 2023-05-20 15:37 | WPDNEUROPN ---
Progress Note: A&P Assessment and Plan (1) Acute CVA (cerebrovascular accident): Code(s): I63.9 - Cerebral infarction, unspecified Status: Acute Plan Neurology assessment is suggestive of left hemispheric lesion with findings on the right upper and lower limb as described above Patient has history of bilateral mastectomy and radiation for cancer of the breast and she had known to have multiple metastases. He is not actively following with anyone for the treatment. History of diabetes mellitus and smoking may be considered concurrent risk factors for cerebrovascular disease besides structural abnormality for metastasis to brain 1. MRI of the brain 2. Continue physical therapy for gait disturbance since he still has weakness in the right lower limb compared to the left side and has some difficulties walking. Next 3. Patient already on atorvastatin 40 mg a day and clopidogrel and aspirin or do other antiplatelets. She may continue with these for now Thank you very much for allowing me to participate in the care of this patient. Time Spent With Patient Time with patient: 25 - 35 minutes Subjective Date/time seen: 05/20/23 15:37 White female with history of breast cancer with multiple metastases off all treatment for last 7 months presented to the hospital with onset of right leg weakness and difficulty in walking. See had a CT scan of brain that did not show any significant abnormalities. 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 See also history of diabetes mellitus and chronic kidney disease with a creatinine of 1.3, history of smoking. A carotid duplex scanning study has shown 50-60% narrowing in the right and under 50 minutes narrowing of the left side. Her AST and alkaline phosphate is also slightly high. She has been treated with surgery with bilateral mastectomy and radiation and chemotherapy in the past. She is stop all treatment because he became upset as he was told by saddle lining stitcher that she could not have surgery on the left eye for some reason for cataract and the patient said that since he cannot see she does not see the point of taking any medications. She lives by herself and does not have any children. Exam Narrative: Fully conscious alert no aphasia or dysarthria. Cranial nerves full to open her right eye. Pupils were small in size difficult to see reaction. Extraocular movements of the left eye appear full. When with a prior open the right eyelids see can move her right eye with a some limitation of the movement in lateral direction. There is a prominent bruit over the right carotid artery. Heart sounds were normal. Motor system normal power in left upper and lower limb PSC is swelling of the right forearm and some loss of rapid alternating movement of the right compared to the left side. In the lower limbs he has mild weakness of the right lower limb compared to the left side and also loss of tapping or rapid alternating movement of the right compared to the left side. Deep tendon reflexes however did not show any significant asymmetry. Sensory is unremarkable. Objective Data Vital Signs Vital Signs: Vital Signs - 24 hr 05/19/23 15:48 05/19/23 16:00 05/19/23 19:22 Temperature 36.3 C L Pulse Rate 105 H 99 91 Respiratory Rate 18 20 Blood Pressure 146/58 H Pulse Oximetry 96 Oxygen Delivery 05/19/23 20:20 05/19/23 21:25 05/19/23 20:30 Temperature 36.2 C L Pulse Rate 99 94 Respiratory Rate 18 20 Blood Pressure 174/60 H Pulse Oximetry 95 Oxygen Delivery Room Air 05/20/23 00:04 05/19/23 20:00 05/20/23 00:00 Temperature 35.8 C L Pulse Rate 92 108 H 99 Respiratory Rate 18 Blood Pressure 192/82 H Pulse Oximetry 100 Oxygen Delivery 05/20/23 01:07 05/20/23 01:34 05/20/23 01:54 Temperature Pulse Rate
[2023-05-20 17:38] LABS: Glucose Point of Care 212 mg/dl (65-105)
[2023-05-20 20:28] LABS: Glucose Point of Care 243 mg/dl (65-105)
[2023-05-20] MEDS: INSULIN GLARGINE (*BKC) 100 UNITS/ML 13 UNITS SUB-Q (21:23)
[2023-05-20] MEDS: INSULIN ASPART (*BKC) 100 UNITS/ML SUB-Q (21:23)
[2023-05-21] VITALS (23 sets, daily range): BP systolic 144–194; BP diastolic 41–70; PULSE 69–99; RESP 14–20; TEMP 36.6–36.8; O2SAT 93–99
[2023-05-21] MEDS: IPRATROPIUM 0.5 MG/ALBUTEROL SULFATE 2.5 MG AMPUL.NEB 3 ML INHALATION ×4 (02:33→19:44)
[2023-05-21 05:28] LABS: Hematocrit 33.8 % (37.0-47.0); Hemoglobin 10.4 g/dL (12.0-15.0); Mean Corpuscular HGB Conc 30.8 g/dl (32-36); Mean Corpuscular Hemoglobin 29.3 pg (26-34); Mean Corpuscular Volume 95.2 fl (80-100); Mean Platelet Volume 10.5 fl (7.4-10.4); Platelet Count Result 197 k/mm3 (150-375); Red Blood Count 3.55 M/mm3 (4.2-5.4); Red Cell Distribution Width 15.4 % (11.5-14.5); White Blood Count 4.7 K/mm3 (4.5-10.0)
[2023-05-21 05:42] LABS: Alanine Aminotransferase 22 U/L (6-35); Albumin Level 3.4 g/dL (3.5-5.1); Alkaline Phosphatase 152 U/L (38-126); Anion Gap 5 mmol/L (8-16); Aspartate Amino Transferase 60 U/L (14-36); Bilirubin,Total 0.3 mg/dL (0.2-1.3); Blood Urea Nitrogen 16 mg/dL (7-17); Calcium 9.4 mg/dL (8.4-10.2); Carbon Dioxide 29 mmol/L (22-30); Chloride 105 mmol/L (98-107); Estimated CRCL calculation 35 ml/min; Estimated Glomerular Filt Rate 44; Glucose 138 mg/dL (65-110); Potassium 3.5 mmol/L (3.4-5.0); Sodium 139 mmol/L (137-145)
[2023-05-21 08:05] LABS: Glucose Point of Care 124 mg/dl (65-105)
--- NOTE | 2023-05-21 09:12 | P.PNIM_ITS ---
Progress Note: A&P Assessment and Plan (1) Acute CVA (cerebrovascular accident): Code(s): I63.9 - Cerebral infarction, unspecified Status: Acute Assessment and Plan: * Last known well 11:00 AM on 05/17/23. Presented to ER 13 hours later. * Telemetry * Neuro checks q4 Hrs * Consult Neurology * MRI brain and brainstem * ECHO * Carotid Dopplers * CXR ordered * Pt refused CTA head and neck as she has anaphylaxis to contrast. * Check fasting lipids, A1C, B12, Vitamin D, Trop and TSH * Allow permissive hypertension for now. * Bedside swallow eval with speech. * PT and OT evaluation * NPO for now. * Start IVF of NS at 100 ml/hr. * Start High intensity statin with Atorvastatin 80 mg po daily. * Start ASA 81 mg daily after results of CT brain without contrast result. * Defer to Neurology the starting of Plavix, but suspect it will be appropriate for pt. * Pt with overall poor prognosis. 05/19: * Started patient on plavix * Plan is to discharge to home on palliative care * Past swallow evaluation resumed diet 05/21: * Patient feels unsafe to return home right now and requested rehab [facility] made aware and currently working on it * Can not get MRI has a pacemaker (2) Tobacco abuse: Code(s): Z72.0 - Tobacco use Status: Chronic Assessment and Plan: * Nicotine Patch ordered. (3) Metastatic disease: Code(s): C79.9 - Secondary malignant neoplasm of unspecified site Status: Chronic Assessment and Plan: * Unknown primary site, but she states she has cancer in 15 different places. In short, her history describes locations of breast, liver, lung, bone and behind the right eye. * Pt reports prior treatment at [facility] w/last chemo treatment in September 2022. None since. * Will request pt records from [facility]. * Patient wants to follow-up with her oncologist after discharge * Requested palliative care services patient provided list (4) Diabetes mellitus: Code(s): E11.9 - Type 2 diabetes mellitus without complications Status: Chronic Assessment and Plan: * Accu-Cheks a.c. HS * sliding scale insulin * hold oral diabetic medications * resume patient's home long-acting * Hemoglobin A1c 8.6 * Diabetic diet * consult to dietitian * encourage lifestyle modifications and weight loss * Optimize Jf inhibitors and statins. * Watch for hypoglycemia/hypoglycemic protocol ordered * Patient will need to be discharged on insulin (5) Hyperlipidemia: Code(s): E78.5 - Hyperlipidemia, unspecified Status: Chronic Assessment and Plan: * Unknown prior treatment. * Check Fasting Lipids. * Start high dose Atorvastatin 80 mg daily in setting of Acute CVA to reduce cardiovascular risk. * Encourage heart healthy and diabetic appropriate diet. (6) Hypertension: Code(s): I10 - Essential (primary) hypertension Status: Chronic Assessment and Plan: * Unknown prior treatment. * Currently allowing Permissive Hypertension in the setting of Acute CVA. If SBP > 180 or DBP > 100 will intervene. * Monitor Vital sign trend. 05/21 * Patient started on metoprolol 25mg BID (7) Chronic kidney disease: Code(s): N18.9 - Chronic kidney disease, unspecified Status: Chronic Assessment and Plan: * Unknown degree of prior CKD. 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 * Current Creatinine and BUN are 1.30/17 respectively. * Trend renal function with daily labs. 05/21: * 1.2 back t
[2023-05-21] MEDS: ATORVASTATIN 40 MG TABLET 80 MG PO (10:43)
[2023-05-21] MEDS: NICOTINE (*PBKC) 21 MG PATCH 1 PATCH TRANSDERM (10:43)
[2023-05-21] MEDS: ASPIRIN 81 MG ENTERIC TABLET PO (10:44)
[2023-05-21] MEDS: METOPROLOL TARTRATE 25 MG TABLET PO ×2 (10:44→17:54)
[2023-05-21] MEDS: CLOPIDOGREL BISULFATE 75 MG TABLET PO (10:44)
[2023-05-21 12:03] LABS: Glucose Point of Care 202 mg/dl (65-105)
[2023-05-21] MEDS: INSULIN ASPART (*BKC) 100 UNITS/ML SUB-Q (12:43)
[2023-05-21] MEDS: polyethylene glycoL 3350 17 GM POWD.PACK PO (15:28)
[2023-05-21 17:11] LABS: Glucose Point of Care 141 mg/dl (65-105)
[2023-05-21] MEDS: hydrALAZINE HCL 20 MG/ML VIAL 10 MG IV PUSH (20:33)
[2023-05-21] MEDS: INSULIN GLARGINE (*BKC) 100 UNITS/ML 13 UNITS SUB-Q (20:34)
[2023-05-21 20:45] LABS: Glucose Point of Care 187 mg/dl (65-105)
[2023-05-22] VITALS (16 sets, daily range): BP systolic 146–165; BP diastolic 50–60; PULSE 71–87; RESP 14–18; TEMP 36.7–37; O2SAT 94–97
[2023-05-22] MEDS: IPRATROPIUM 0.5 MG/ALBUTEROL SULFATE 2.5 MG AMPUL.NEB 3 ML INHALATION ×3 (01:33→14:03)
--- NOTE | 2023-05-22 02:32 | ECG_ITS ---
Measurements Intervals [place] Rate: 72 P: 47 HI: 195 QRS: 10 QRSD: 93 T: 61 QT: 429 QTc: 470 Interpretive Statements SINUS RHYTHM WITH OCCASIONAL SUPRAVENTRICULAR PREMATURE COMPLEXES COMPARED TO ECG 05/18/2023 03:03:46 NO SIGNIFICANT CHANGES Electronically Signed On 05-22-2023 16:27:53 MAINTENANCE MGR by Patricia Malin M.D.
[2023-05-22] MEDS: BELLADONNA ALK/PHENOB ELIX 10 ML, MAG HYDROX/ALUMINUM HYD/SIMETH 30 ML, LIDOCAINE HCL 2... PO (03:12)
[2023-05-22 05:50] LABS: Hematocrit 33.3 % (37.0-47.0); Hemoglobin 10.3 g/dL (12.0-15.0); Mean Corpuscular HGB Conc 30.9 g/dl (32-36); Mean Corpuscular Hemoglobin 29.2 pg (26-34); Mean Corpuscular Volume 94.3 fl (80-100); Mean Platelet Volume 10.6 fl (7.4-10.4); Platelet Count Result 204 k/mm3 (150-375); Red Blood Count 3.53 M/mm3 (4.2-5.4); Red Cell Distribution Width 15.4 % (11.5-14.5); White Blood Count 5.1 K/mm3 (4.5-10.0)
[2023-05-22 06:02] LABS: Alanine Aminotransferase 26 U/L (6-35); Albumin Level 3.3 g/dL (3.5-5.1); Alkaline Phosphatase 139 U/L (38-126); Anion Gap 3 mmol/L (8-16); Aspartate Amino Transferase 66 U/L (14-36); Bilirubin,Total 0.3 mg/dL (0.2-1.3); Blood Urea Nitrogen 25 mg/dL (7-17); Calcium 9.3 mg/dL (8.4-10.2); Carbon Dioxide 31 mmol/L (22-30); Chloride 103 mmol/L (98-107); Estimated CRCL calculation 26 ml/min; Estimated Glomerular Filt Rate 32; Glucose 152 mg/dL (65-110); Potassium 3.8 mmol/L (3.4-5.0); Sodium 137 mmol/L (137-145)
[2023-05-22 07:44] LABS: Glucose Point of Care 124 mg/dl (65-105)
[2023-05-22] MEDS: polyethylene glycoL 3350 17 GM POWD.PACK PO (09:49)
[2023-05-22] MEDS: ATORVASTATIN 40 MG TABLET 80 MG PO (09:49)
[2023-05-22] MEDS: ASPIRIN 81 MG ENTERIC TABLET PO (09:49)
[2023-05-22] MEDS: METOPROLOL TARTRATE 25 MG TABLET PO (09:49)
[2023-05-22] MEDS: CLOPIDOGREL BISULFATE 75 MG TABLET PO (09:49)
[2023-05-22] MEDS: NICOTINE (*PBKC) 21 MG PATCH 1 PATCH TRANSDERM (09:53)
--- NOTE | 2023-05-22 10:09 | P.PNIM_ITS ---
Progress Note: A&P Assessment and Plan (1) Acute CVA (cerebrovascular accident): Code(s): I63.9 - Cerebral infarction, unspecified Status: Acute Assessment and Plan: * Last known well 11:00 AM on 05/17/23. Presented to ER 13 hours later. * Telemetry * Neuro checks q4 Hrs * Consult Neurology * MRI brain and brainstem * ECHO * Carotid Dopplers * CXR ordered * Pt refused CTA head and neck as she has anaphylaxis to contrast. * Check fasting lipids, A1C, B12, Vitamin D, Trop and TSH * Allow permissive hypertension for now. * Bedside swallow eval with speech. * PT and OT evaluation * NPO for now. * Start IVF of NS at 100 ml/hr. * Start High intensity statin with Atorvastatin 80 mg po daily. * Start ASA 81 mg daily after results of CT brain without contrast result. * Defer to Neurology the starting of Plavix, but suspect it will be appropriate for pt. * Pt with overall poor prognosis. 05/19: * Started patient on plavix * Plan is to discharge to home on palliative care * Past swallow evaluation resumed diet 05/21: * Patient feels unsafe to return home right now and requested rehab CC made aware and currently working on it * Can not get MRI has a pacemaker (2) Tobacco abuse: Code(s): Z72.0 - Tobacco use Status: Chronic Assessment and Plan: * Nicotine Patch ordered. (3) Metastatic disease: Code(s): C79.9 - Secondary malignant neoplasm of unspecified site Status: Chronic Assessment and Plan: * Unknown primary site, but she states she has cancer in 15 different places. In short, her history describes locations of breast, liver, lung, bone and behind the right eye. * Pt reports prior treatment at [facility] w/last chemo treatment in September 2022. None since. * Will request pt records from [facility]. * Patient wants to follow-up with her oncologist after discharge * Requested palliative care services patient provided list (4) Diabetes mellitus: Code(s): E11.9 - Type 2 diabetes mellitus without complications Status: Chronic Assessment and Plan: * Accu-Cheks a.c. HS * sliding scale insulin * hold oral diabetic medications * resume patient's home long-acting * Hemoglobin A1c 8.6 * Diabetic diet * consult to dietitian * encourage lifestyle modifications and weight loss * Optimize Jf inhibitors and statins. * Watch for hypoglycemia/hypoglycemic protocol ordered * Patient will need to be discharged on insulin (5) Hyperlipidemia: Code(s): E78.5 - Hyperlipidemia, unspecified Status: Chronic Assessment and Plan: * Unknown prior treatment. * Check Fasting Lipids. * Start high dose Atorvastatin 80 mg daily in setting of Acute CVA to reduce cardiovascular risk. * Encourage heart healthy and diabetic appropriate diet. (6) Hypertension: Code(s): I10 - Essential (primary) hypertension Status: Chronic Assessment and Plan: * Unknown prior treatment. * Currently allowing Permissive Hypertension in the setting of Acute CVA. If SBP > 180 or DBP > 100 will intervene. * Monitor Vital sign trend. 05/21 * Patient started on metoprolol 25mg BID (7) Chronic kidney disease: Code(s): N18.9 - Chronic kidney disease, unspecified Status: Chronic Assessment and Plan: * Unknown degree of prior CKD. 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 * Current Creatinine and BUN are 1.30/17 respectively. * Trend renal function with daily labs. 05/21: * 1.2 back t
--- NOTE | 2023-05-22 10:09 | PM.IMPN ---
Progress Note: A&P Assessment and Plan (1) Acute CVA (cerebrovascular accident): Code(s): I63.9 - Cerebral infarction, unspecified Status: Acute Assessment and Plan: Last known well 11:00 AM on 05/17/23. Presented to ER 13 hours later. Telemetry Neuro checks q4 Hrs Consult Neurology MRI brain and brainstem ECHO Carotid Dopplers CXR ordered Pt refused CTA head and neck as she has anaphylaxis to contrast. Check fasting lipids, A1C, B12, Vitamin D, Trop and TSH Allow permissive hypertension for now. Bedside swallow eval with speech. PT and OT evaluation NPO for now. Start IVF of NS at 100 ml/hr. Start High intensity statin with Atorvastatin 80 mg po daily. Start ASA 81 mg daily after results of CT brain without contrast result. Defer to Neurology the starting of Plavix, but suspect it will be appropriate for pt. Pt with overall poor prognosis. 05/19: Started patient on plavix Plan is to discharge to home on palliative care Past swallow evaluation resumed diet 05/21: Patient feels unsafe to return home right now and requested rehab CC made aware and currently working on it Can not get MRI has a pacemaker (2) Tobacco abuse: Code(s): Z72.0 - Tobacco use Status: Chronic Assessment and Plan: Nicotine Patch ordered. (3) Metastatic disease: Code(s): C79.9 - Secondary malignant neoplasm of unspecified site Status: Chronic Assessment and Plan: Unknown primary site, but she states she has cancer in 15 different places. In short, her history describes locations of breast, liver, lung, bone and behind the right eye. Pt reports prior treatment at [facility] w/last chemo treatment in September 2022. None since. Will request pt records from [facility]. Patient wants to follow-up with her oncologist after discharge Requested palliative care services patient provided list (4) Diabetes mellitus: Code(s): E11.9 - Type 2 diabetes mellitus without complications Status: Chronic Assessment and Plan: Accu-Cheks a.c. HS sliding scale insulin hold oral diabetic medications resume patient's home long-acting Hemoglobin A1c 8.6 Diabetic diet consult to dietitian encourage lifestyle modifications and weight loss Optimize Jf inhibitors and statins. Watch for hypoglycemia/hypoglycemic protocol ordered Patient will need to be discharged on insulin (5) Hyperlipidemia: Code(s): E78.5 - Hyperlipidemia, unspecified Status: Chronic Assessment and Plan: Unknown prior treatment. Check Fasting Lipids. Start high dose Atorvastatin 80 mg daily in setting of Acute CVA to reduce cardiovascular risk. Encourage heart healthy and diabetic appropriate diet. (6) Hypertension: Code(s): I10 - Essential (primary) hypertension Status: Chronic Assessment and Plan: Unknown prior treatment. Currently allowing Permissive Hypertension in the setting of Acute CVA. If SBP > 180 or DBP > 100 will intervene. Monitor Vital sign trend. 05/21 Patient started on metoprolol 25mg BID (7) Chronic kidney disease: Code(s): N18.9 - Chronic kidney disease, unspecified Status: Chronic Assessment and Plan: Unknown degree of prior CKD. 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 Current Creatinine and BUN are 1.30/17 respectively. Trend renal function with daily labs. 05/21: 1.2 back to baseline (8) Urinary tract infection: Code(s): N39.0 - Urinary tract infection, site not specified Status: Acute Assessment and Plan: As evidenced by UA that shows turbidity, 3+ Protein, trace Leuks, >100 RBC's and 51-100 WBC's with 4+ Bacteria and only a few squamous epithelials. Urine culture pending Start Rocephin 1GM Q 24 hours pending culture. (9) Noncompliance: Code(s): Z91.199 - Patient's noncompliance with other medical treat
--- NOTE | 2023-05-22 11:42 | P.CDI_ITS ---
CDI Query Clarification Request BMI 27.3 Nutritional Diagnostic Statement Severe protein calorie malnutrition related to chronic metastatic cancer as evidenced by weight loss >20%/1 year; intakes <75% needs >1 month. Nutrition intervention: Oral nutrition supplement : Glucerna BID additional 220 kcal and 10 g protein Please refer to the comprehensive nutrition assessment for further information. Please clarify severity of protein calorie malnutrition if known: * Mild * Moderate * Severe * Other/Unspecified <Alma Herrera RN - Last Filed: 05/22/23 11:48> moderate BMI 27.3 Nutritional Diagnostic Statement Severe protein calorie malnutrition related to chronic metastatic cancer as evidenced by weight loss >20%/1 year; intakes <75% needs >1 month. Nutrition intervention: Oral nutrition supplement : Glucerna BID additional 220 kcal and 10 g protein Please refer to the comprehensive nutrition assessment for further information. Please clarify severity of protein calorie malnutrition if known: * Mild * Moderate * Severe * Other/Unspecified <Talya Gill APRN - Last Filed: 05/22/23 14:24>
[2023-05-22 11:51] LABS: Glucose Point of Care 170 mg/dl (65-105)
--- NOTE | 2023-05-22 14:02 | PM.DS ---
DS: Admitting Diagnosis Discharge Date 05/22/2023 Admitting Diagnosis Acute CVA DS: Discharge Diagnosis Discharge Diagnosis (1) Noncompliance: Code(s): Z91.199 - Patient's noncompliance with other medical treatment and regimen due to unspecified reason Status: Chronic (2) Urinary tract infection: Code(s): N39.0 - Urinary tract infection, site not specified Status: Acute (3) Metastatic disease: Code(s): C79.9 - Secondary malignant neoplasm of unspecified site Status: Chronic (4) Diabetes mellitus: Code(s): E11.9 - Type 2 diabetes mellitus without complications Status: Chronic (5) Hyperlipidemia: Code(s): E78.5 - Hyperlipidemia, unspecified Status: Chronic (6) Hypertension: Code(s): I10 - Essential (primary) hypertension Status: Chronic (7) Chronic kidney disease: Code(s): N18.9 - Chronic kidney disease, unspecified Status: Chronic (8) Acute CVA (cerebrovascular accident): Code(s): I63.9 - Cerebral infarction, unspecified Status: Acute Plan -patient will discharge home, home health has been set up for patient -patient reports she has a an appointment to her eye surgery rescheduled -patient reports she will follow up with Oncology to restart chemotherapy and possible radiation DS: Summary Hospital Course Reason for hospitalization: 72-year-old female admitted to the hospital via emergency room services with complaints of right-sided weakness Hospital Course: Chief Complaint: Weakness, unable to move right side Narrative: ?? ? This 72 year old female pt with significant PMH of CKD, Renal Tuberculosis, Metastatic breast cancer w/spread to Bone, Liver, Lung, and Behind the right eye leaving legally blind in right eye, Chronic right eye droop from cut muscle when attempting to perform biopsy last year at [facility], HTN, HLD, DM, Chronic Tobacco abuse who has stopped all medications as of 09/2022 presented to the ER this AM at approximately 0151 with stroke like symptoms. Pt's primary care for all medical needs is usually performed at [facility], so we do not have a full history on her and one was not done to this point by the ER staff. The pt endorses to me her history and states that she chose to stop all medical care last September after [facility] refused to fix my eye. This includes medications for her DM, HTN, HLD, and her Chemotherapy. Her current HPI of presenting illness is told that her last known well was at 11:00AM on 05/17/23 when she was sitting at home in her chair and she started having what she calls a dizzy spell. She attempted to get up and she was weak in the right leg and right arm causing her to fall to her knees. She was eventually able to get to her bed to lie down, but when she woke up hours later she had lost control of her right arm and right leg and could not bear weight on the right leg without again falling to her knees. She called 911 for transport to the ER. She tells me that she has had these dizzy spells for the past week and a half, and has had them everyday. The duration of the dizziness has been up to 5 hours, it is relieved usually by laying down, and it is accompanied by a headache and nausea. This time it did not go away and it concerned her prompting her presentation. In the ER, CT Brain was performed and the results are pending still. Pt was not agreeable to having CTA brain and carotids done as she has had reported anaphylaxis to contrast in the past. ED physician ordered an MRI and consulted Neurology and presented her to the Hospitalist service at this time for admission and further management. Currently she is resting on her left side and does not appear to be in any acute distress. She does acknowledge that she has a headache and remains dizzy. Her labs in ER were significant for UTI that she received a dose of Rocephin for and culture is pending. The remainder of her labs do not appear remarkable that were performed in the ER in
[2023-05-22 16:23] LABS: Glucose Point of Care 198 mg/dl (65-105)
== END 2023-05-22 16:55 | disposition home health service (06) | DRG 65 ==
LOC: ANHED 05-18 05:46 → ANH3MEDSUR 05-18 06:31 → ANH2MED 05-18 11:57 → ANH3MEDSUR 05-23 12:57
PROVIDERS: Nurse Practitioner Adult Health; Nurse Practitioner Family; Admitting Provider Internal Medicine; Emergency Provider Emergency Medicine; Visit Provider Nurse Practitioner
DX: I63.9 Cerebral infarction, unspecified (principal); C78.00 Secondary malignant neoplasm of unspecified lung; G81.91 Hemiplegia, unspecified affecting right dominant side; N39.0 Urinary tract infection, site not specified; C78.7 Secondary malignant neoplasm of liver and intrahepatic bile duct; C79.51 Secondary malignant neoplasm of bone; C79.49 Secondary malignant neoplasm of other parts of nervous system; E44.0 Moderate protein-calorie malnutrition; C50.919 Malignant neoplasm of unspecified site of unspecified female breast; R26.2 Difficulty in walking, not elsewhere classified; E78.5 Hyperlipidemia, unspecified; I12.9 Hypertensive chronic kidney disease with stage 1 through stage 4 chronic kidney disease, or unspecified chronic kidney disease; E11.22 Type 2 diabetes mellitus with diabetic chronic kidney disease; N18.9 Chronic kidney disease, unspecified; F17.210 Nicotine dependence, cigarettes, uncomplicated; H54.8 Legal blindness, as defined in USA; R29.704 NIHSS score 4; D64.9 Anemia, unspecified; Z91.199 Patient's noncompliance with other medical treatment and regimen due to unspecified reason; Z68.27 Body mass index [BMI] 27.0-27.9, adult
CPT/HCPCS: 36415; 70450; 71046; 80053; 80061; 81001; 82306; 82607; 82746; 82948; 83036; 83735; 84443; 84484; 85025; 85027; 85610; 85730; 87086; 92610; 93005; 93306; 93880; 94640; 96365; 97110; 97161; 97165; 97530; 97535; 99285; A9270; J0360; J0696; J1815; J2405; J7030

== ENCOUNTER 2023-06-16 21:06 | Observation (INO) | payer MEDICARE, MEDICAID, SELFPAY ==
--- NOTE | ~2023-06-16 | XR_ITS ---
EXAMINATION: XR chest 1V portable Exam Date/Time: 06/16/2023 21:50 CDT HISTORY: weakness Comparison: Same date at 8:59 AM. RESULT: Lines, tubes, and devices: Left chest pacer with intact leads.. Lungs and pleura: Clear. Cardiomediastinal silhouette: Stable. Other: No acute osseous or upper abdominal finding. IMPRESSION: No acute cardiopulmonary process. Reviewed, dictated and finalized at location K.
[2023-06-16 21:07] VITALS: BP 156/120; PULSE 114; RESP 26; TEMP 36.8; O2SAT 96
--- NOTE | 2023-06-16 21:14 | ECG_ITS ---
Measurements Intervals [place] Rate: 97 P: 53 NV: 211 QRS: -7 QRSD: 94 T: 71 QT: 367 QTc: 467 Interpretive Statements SINUS RHYTHM WITH FIRST DEGREE AV BLOCK ATRIAL AND VENTRICULAR PREMATURE COMPLEXES CANNOT RULE OUT SEPTAL INFARCT, AGE INDETERMINATE BORDERLINE ST-T WAVE ABNORMALITY- LAT/HIGH LAT LEADS BASELINE ARTIFACT- I, III, AVL, V1-V6 ABNORMAL ECG COMPARED TO ECG 05/22/2023 02:46:37 FIRST DEGREE AV BLOCK NOW PRESENT Electronically Signed On 06-17-2023 6:32:14 CDT by Marty Cobb D.O.
[2023-06-16 21:20] LABS: Basophils Percent Auto 0.4 % (0.2-1.2); Eosinophils Absolute Auto 0.2 K/mm3 (0-0.3); Eosinophils Percent Auto 2.7 % (0-4.4); Hematocrit 27.7 % (37.0-47.0); Hemoglobin 8.5 g/dL (12.0-15.0); Immature Granulocyte Absolute 0.14 K/mm3 (0.00-0.031); Immature Granulocyte Percent A 1.7 % (0-0.5); Lymphocytes Percent Auto 29.2 % (18.3-44.2); Mean Corpuscular HGB Conc 30.7 g/dl (32-36); Mean Corpuscular Hemoglobin 29.4 pg (26-34); Mean Corpuscular Volume 95.8 fl (80-100); Mean Platelet Volume 10.2 fl (7.4-10.4); Monocytes Absolute Auto 0.6 K/mm3 (0.1-0.6); Monocytes Percent Auto 6.9 % (2.6-8.5); Neutrophils Absolute Auto 4.9 K/mm3 (1.3-6.7); Neutrophils Percent Auto 59.1 % (45.5-73.1); Nucleated Red Blood Cells Perc 0.6 % (0.0-0.2); Platelet Count Result 297 k/mm3 (150-375); Red Blood Count 2.89 M/mm3 (4.2-5.4); Red Cell Distribution Width 16.6 % (11.5-14.5); White Blood Count 8.2 K/mm3 (4.5-10.0)
[2023-06-16 21:31] LABS: Alanine Aminotransferase 23 U/L (6-35); Albumin Level 3.7 g/dL (3.5-5.1); Alkaline Phosphatase 191 U/L (38-126); Anion Gap 8 mmol/L (8-16); Aspartate Amino Transferase 68 U/L (14-36); Bilirubin,Total 0.5 mg/dL (0.2-1.3); Blood Urea Nitrogen 33 mg/dL (7-17); Calcium 9.6 mg/dL (8.4-10.2); Carbon Dioxide 26 mmol/L (22-30); Chloride 105 mmol/L (98-107); Estimated CRCL calculation 25 ml/min; Estimated Glomerular Filt Rate 34; Glucose 216 mg/dL (65-110); Potassium 3.9 mmol/L (3.4-5.0); Sodium 139 mmol/L (137-145)
--- NOTE | 2023-06-16 22:29 | ED.GENADULT ---
HPI - General Adult General Chief complaint: Unspecified Stated complaint: failure to thrive Time Seen by Provider: 06/16/23 21:15 History of Present Illness HPI narrative: Patient is a 72-year-old female who presents to the emergency department this evening from home due to failure to thrive and inability to perform her activities of daily living. Patient had a stroke last month in April and was seen and admitted at our facility. She was discharged on May 22 to rehab facility and from there she was discharged home on the . Patient states that throughout the past 6 days that she has been at home she has fallen twice, she is unable to transfer herself from her wheelchair or get around and is unable to care for herself anymore. Patient called EMS and was brought our facility for further evaluation. She denies any recent head trauma with her recent falls and is currently denying any pain. Patient does have residual right-sided weakness since her stroke. She is currently denying symptoms. There are no other modifying, alleviating, or precipitating factors at this time. Related Data Allergies Allergy/AdvReac Type Severity Reaction Status Date / Time iohexol Allergy Severe Anaphylaxis Verified 05/21/23 13:38 [From contrast - CT, X-RAY] phenylbutazone Allergy Anaphylaxis Verified 05/28/23 16:47 [From Butazolidin] adhesive tape AdvReac Rash Verified 05/28/23 17:33 levofloxacin AdvReac Itching Verified 05/28/23 16:47 Review of Systems Review of Systems: All systems are reviewed and are negative unless stated otherwise in the HPI. [facility], [facility] Past Medical History Medical History Chronic kidney disease Diabetes mellitus Hyperlipidemia Hypertension Metastatic disease Noncompliance Tobacco abuse Urinary tract infection Surgical History Surgical History S/P biopsy Family History Family History Father , Onset Age: 45 Mother , Onset Age: 65 Breast cancer Sibling , Onset Age: 50 Brain cancer Daughter , Onset Age: 41 Heroin overdose Daughter Alcoholism Social History Social History Smoking packs per day: 1 Smoking cigarettes per day: 20.0 Years smoked: 58 Smoking pack-years: 58.00 Smoking status: Current every day smoker Tobacco type: cigarettes Alcohol intake: current Drinks per week: 0 Substance use: never Substance use type: does not use Last use: 47 years ago Do You Feel Safe in your Home?: Yes Lack of Transportation: YES Lack of Food: Never True Current Housing: I Have Housing Concerned About Future Housing: No Difficulty Paying Gas/Electric Bills: No Difficulty Paying for Meds: No Currently Unemployed: No Education: Associate Degree Difficulty w/ Childcare or Family Care: No Spiritual care concerns: No Exam Narrative: General: Alert, awake, afebrile, in no acute distress. HEENT: Droopy right eyelid which patient states is chronic, no rhinorrhea, no post nasal drip, oropharynx clear. Neck: Trachea midline, no JVD, no lymphadenopathy. Cardiovascular: Regular rate and rhythm, no murmurs, rubs or gallops, no peripheral edema. Respiratory: Clear to auscultation bilaterally, no tachypnea, no wheezing, no rhonchi, no rubs, no respiratory distress. Abdomen: Soft, nontender, nondistended, no rebound, no guarding, no peritoneal signs. Musculoskeletal: No joint swelling or deformity, normal muscle tone. Skin: No rashes or petechia, no signs of infection. Psychiatric: Alert and oriented, normal behavior and judgment for situation. Neurological: Alert and oriented to person, place, and time. Follows all commands. 5/5 motor strength in the left upper and lower extremity, 3/5 motor strength i
--- NOTE | 2023-06-16 22:51 | PM.IMHP ---
H&P: HPI History of Present Illness Date/Time: 06/16/23 22:51 Chief Complaint: fall Narrative: this is a 72-year-old female with past medical history significant for COPD,/emphysema, type diabetes mellitus, stroke, right lower extremity weakness. Patient was recently discharged after having a stroke went home has been there for a week however has had few falls and has been unable to transfer from wheelchair. Has been unable to perform her activities of daily living, has not been able to care for herself. Patient denies any fevers, rigors, chills, cough, sputum production, nausea, vomiting, diarrhea, pain or burning with urination. Preliminary workup has been essentially nonrevealing. EXAMINATION:? XR chest 1V portable Exam Date/Time:? 06/16/2023 21:50 CDT HISTORY: weakness ? Comparison:? Same date at 8:59 AM. RESULT: Lines, tubes, and devices:? Left chest pacer with intact leads.. Lungs and pleura:? Clear. Cardiomediastinal silhouette:? Stable. Other:? No acute osseous or upper abdominal finding. ? IMPRESSION: No acute cardiopulmonary process. Review of Systems Review of Systems: Unable to transfer from wheelchair, falls, unable to take care for herself Constitutional: Constitutional: Denies chills and Denies fever(s) Eyes: Eyes: Denies change in vision ENT: Denies dysphagia and Denies odynophagia Cardiovascular: Cardiovascular: Denies chest pain, Denies radiating jaw, neck or arm pain and Denies palpitations Respiratory: Respiratory: Denies chest congestion, Denies excessive phlegm production and Denies dyspnea Gastrointestinal: Gastrointestinal: Denies abdominal pain, Denies dyspepsia, Denies heartburn, Denies diarrhea, Denies nausea and Denies vomiting Genitourinary: Genitourinary: Denies dysuria Musculoskeletal: Musculoskeletal: Reports other ( fall) Integumentary/Breasts: Skin/Breast: Denies rash Neurologic: Reports focal weakness ( right lower extremity) Psychiatric: Psychiatric: Reports no additional psychiatric complaints and Reports as per HPI Endocrine: Endocrine: Denies cold intolerance, Denies heat intolerance, Denies polyphagia, Denies polydipsia, Denies polyuria and Denies palpitations Hematologic/Lymphatic: Hematologic/Lymphatic: Reports no additional hematologic/lymphatic complaints and Reports as per HPI Allergic/Immunologic: Allergic/Immunologic: Reports no additional allergic/immunologic complaints and Reports as per HPI [facility] Past Medical History Medical History Chronic kidney disease Diabetes mellitus Hyperlipidemia Hypertension Metastatic disease Noncompliance Tobacco abuse Urinary tract infection Surgical History Surgical History S/P biopsy Family History Family History Father , Onset Age: 45 Mother , Onset Age: 65 Breast cancer Sibling , Onset Age: 50 Brain cancer Daughter , Onset Age: 41 Heroin overdose Daughter Alcoholism Social History Social History Smoking packs per day: 1 Smoking cigarettes per day: 20.0 Years smoked: 47 Smoking pack-years: 47.00 Smoking status: Current every day smoker Tobacco type: cigarettes Second hand tobacco smoke exposure: No Alcohol intake: never Drinks per week: 0 Substance use: never Substance use type: does not use Last use: 47 years ago Do You Feel Safe in your Home?: No Lack of Transportation: No Lack of Food: Never True Current Housing: I Have Housing Concerned About Future Housing: No Difficulty Paying Gas/Electric Bills: No Difficulty Paying for Meds: No Currently Unemployed: No Education: Trade/Vocational Certificate Difficulty w/ Childcare or Family Care: No Spiritual care concerns: No
--- NOTE | 2023-06-16 23:08 | PC.NURSE ---
Report received from CARMINA Escamilla. Assumed care of patient at this time. Patient awaiting room placement for admission.
--- NOTE | 2023-06-16 23:19 | PC.NURSE ---
Patient assisted to [facility] with x2 assist. Patient able to provide a urine sample. Patient [facility] to [facility] with x2 assist. Patient tolerated well.
[2023-06-16 23:25] VITALS: BP 142/100; PULSE 94; RESP 19; O2SAT 100
[2023-06-16 23:31] LABS: Add Urine Microscopic? YES; Appearance Urine Cloudy (Clear); Color Urine Yellow (Yellow); Glucose Urine UA Negative (Negative); Protein Urine 3+ mg/dL (Negative)
[2023-06-16 23:32] LABS: Bilirubin Urine Negative (Negative); Blood Urine Trace-intact (Negative); Ketones Urine Negative (Negative); Leukocyte Esterase Ur Trace LEU/UL (Negative); Nitrate Urine Positive (Negative); Urobilinogen Urine 0.2 mg/dL (<2.0)
[2023-06-16 23:42] LABS: Bacteria Urine 4+ /hpf; Mucus Urine Present /lpf; Need Manual Microscopic Reviewed; RBC Urine >100 /hpf (0-2); Squamous Epithelial Cell Urine Few /hpf (Few); WBC Urine 51-100 /hpf (0-3)
[2023-06-17] VITALS (8 sets, daily range): BP systolic 113–153; BP diastolic 43–63; PULSE 70–92; RESP 14–18; TEMP 36.4–36.6; O2SAT 92–100; BMI 25.5; BMI 25.6
--- NOTE | 2023-06-17 00:13 | ADMGEN ---
This patient, Vanita Blackwood, was admitted to 3 [facility] Surg Room 301-01. Patient/family oriented to hospital policies and general routines including ID bracelet, bed and alarms, visiting hours, pain management, procedures, bathroom and other care routines, personal items, smoking policy, room service/diet, and visiting hours. Information on how to activate the Rapid Response Team has been discussed. Patient/Family are encouraged to report perceived risks to care and to ask questions if they do not understand what they are told or what they should do.
[2023-06-17] MEDS: traMADol HCL (*CRX) 50 MG TABLET PO (02:22)
[2023-06-17] MEDS: PANTOPRAZOLE 40 MG TABLET PO (08:08)
[2023-06-17] MEDS: GABAPENTIN 300 MG CAPSULE PO ×3 (08:10→16:17)
[2023-06-17] MEDS: ASPIRIN 81 MG ENTERIC TABLET PO (08:10)
[2023-06-17] MEDS: APIXABAN 5 MG TABLET PO ×2 (08:10→20:13)
[2023-06-17] MEDS: lisinopriL 20 MG TABLET 40 MG PO (08:10)
[2023-06-17] MEDS: METOPROLOL TARTRATE 25 MG TABLET PO ×2 (08:10→20:12)
[2023-06-17] MEDS: LIDOCAINE 5% PATCH 1 PATCH TRANSDERM (10:36)
--- NOTE | 2023-06-17 11:04 | PM.IMPN ---
Progress Note: A&P Assessment and Plan (1) Failure to thrive: Status: Acute Assessment and Plan: -consult to care coordination for placement -Initiate fall precautions -PT/ OT consult eval and treat (2) Diabetic neuropathy: Code(s): E11.40 - Type 2 diabetes mellitus with diabetic neuropathy, unspecified Status: Acute Assessment and Plan: -Last A1c 0 05/19 8.6 -continue home medication gabapentin (3) Type 2 diabetes mellitus with hyperglycemia: Code(s): E11.65 - Type 2 diabetes mellitus with hyperglycemia Status: Acute Assessment and Plan: hold home medication Januvia (4) COPD (chronic obstructive pulmonary disease): Code(s): J44.9 - Chronic obstructive pulmonary disease, unspecified Status: Acute Assessment and Plan: stable continue home meds Albuterol 2.5 mg inhalation q.6 hours p.r.n. for wheezing or SOB (5) Atrial fibrillation: Code(s): I48.91 - Unspecified atrial fibrillation Status: Chronic Assessment and Plan: -rate controlled, patient has pacemaker -Continue apixaban Continue metoprolol 25 mg b.i.d. for rate control (6) Tobacco dependence: Code(s): F17.200 - Nicotine dependence, unspecified, uncomplicated Status: Acute Assessment and Plan: nicotine patch daily as needed Plan Continue home medications: hold home medication metformin VTE Prophylaxis: Eliquis DIET: heart healthy Anticipated hospital stay: > 2 days Code Status: full Subjective Date/time seen: 06/17/23 11:04 Interval history: Patient provides the following HPI: chief complaint of fall at home after being discharged from post acute rehabilitation. 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 Patient reports she [facility] she was sent home, citing she does not have any home health. , she states it was very difficult to care for herself at home citing she was trying to transfer himself from wheelchair when she encountered a fall, she denies any LOC or other injuries. She denies any fevers, chills, nausea vomiting, SOB or chest pain at this time. 06/16 Patient seen this morning she is lying in bed in no acute distress she denies any overnight events, complains of ongoing weakness she is very concerned about not being able to care for herself at home due to extreme weakness. Review of Systems Review of Systems: Unable to transfer from wheelchair, falls, unable to take care for herself Exam Narrative: General: A ill-appearing, female resting in the bed HEENT: PERRL, EOMI. Oral mucosa dry Neck: Supple. No midline cervical tenderness. Respiratory: Respirations are non- labored and lungs are clear to auscultation bilaterally. Cardiovascular: Regular rate and rhythm with S1-S2. Gastrointestinal: Abdomen is soft, non-tender, and non-distended with positive bowel sounds. Skin: Warm and dry. No rash or lesions on limited exam. Extremities: No cyanosis, clubbing, or edema. Radial and pedal pulses intact. Neurological: Alert and oriented. Cranial nerves 2-12 are grossly intact. No gross focal deficits to casual conversation. Psychiatric: cooperative with mild anxiety Judgment and insight intact. Objective Data Vital Signs Vital Signs: Vital Signs - 24 hr 06/16/23 21:07 06/16/23 23:25 06/17/23 00:11 Temperature 98.2 F 97.6 F Pulse Rate 114 H 94 92 Respiratory Rate 26 H 19 16 Blood Pressure 156/120 H 142/100 H 113/61 Pulse Oximetry 96 100 99 Oxygen Delivery Room Air Fraction of Inspired Oxygen 06/17/23 04:50 06/17/23 08:10 06/17/23 08:34 Temperature 97.5 F L Pulse Rate 84 86 Respiratory Rate 16 Blood Pressure 147/53 H Pulse Oximetry 100 92 Oxygen Delivery Room Air Fraction of Inspired Oxygen 06/17/23 08:
[2023-06-17 11:50] LABS: Glucose Point of Care 137 mg/dl (65-105)
[2023-06-17 16:37] LABS: Glucose Point of Care 108 mg/dl (65-105)
[2023-06-17] MEDS: NICOTINE (*PBKC) 21 MG PATCH 1 PATCH TRANSDERM (20:11)
[2023-06-17] MEDS: LORATADINE 10 MG TABLET PO (20:11)
[2023-06-17 20:24] LABS: Glucose Point of Care 123 mg/dl (65-105)
--- NOTE | 2023-06-17 23:18 | PC.NURSE ---
This RN preceptor has read over and agrees with student nurse Stauffer's charting and assessment.
[2023-06-18] VITALS (8 sets, daily range): BP systolic 149–189; BP diastolic 50–64; PULSE 60–77; RESP 16; TEMP 36.3–36.8; O2SAT 93–100
[2023-06-18 07:12] LABS: Basophils Percent Auto 0.6 % (0.2-1.2); Eosinophils Absolute Auto 0.3 K/mm3 (0-0.3); Eosinophils Percent Auto 4.6 % (0-4.4); Hematocrit 24.3 % (37.0-47.0); Hemoglobin 7.5 g/dL (12.0-15.0); Immature Granulocyte Absolute 0.11 K/mm3 (0.00-0.031); Lymphocytes Absolute Auto 1.81 K/mm3 (0.9-3.2); Lymphocytes Percent Auto 33.5 % (18.3-44.2); Mean Corpuscular HGB Conc 30.9 g/dl (32-36); Mean Corpuscular Hemoglobin 29.9 pg (26-34); Mean Corpuscular Volume 96.8 fl (80-100); Mean Platelet Volume 10.4 fl (7.4-10.4); Monocytes Absolute Auto 0.4 K/mm3 (0.1-0.6); Monocytes Percent Auto 7.4 % (2.6-8.5); Neutrophils Absolute Auto 2.8 K/mm3 (1.3-6.7); Neutrophils Percent Auto 51.9 % (45.5-73.1); Nucleated Red Blood Cells Perc 0.6 % (0.0-0.2); Platelet Count Result 282 k/mm3 (150-375); Red Blood Count 2.51 M/mm3 (4.2-5.4); Red Cell Distribution Width 16.5 % (11.5-14.5); White Blood Count 5.4 K/mm3 (4.5-10.0)
[2023-06-18 07:38] LABS: Glucose Point of Care 99 mg/dl (65-105)
[2023-06-18 07:43] LABS: Alanine Aminotransferase 20 U/L (6-35); Albumin Level 3.1 g/dL (3.5-5.1); Alkaline Phosphatase 158 U/L (38-126); Anion Gap 5 mmol/L (8-16); Aspartate Amino Transferase 58 U/L (14-36); Bilirubin,Total 0.4 mg/dL (0.2-1.3); Blood Urea Nitrogen 22 mg/dL (7-17); Calcium 9.4 mg/dL (8.4-10.2); Carbon Dioxide 27 mmol/L (22-30); Chloride 107 mmol/L (98-107); Estimated CRCL calculation 28 ml/min; Estimated Glomerular Filt Rate 40; Glucose 93 mg/dL (65-110); Potassium 3.9 mmol/L (3.4-5.0); Sodium 139 mmol/L (137-145)
[2023-06-18] MEDS: METOPROLOL TARTRATE 25 MG TABLET PO ×2 (08:40→20:24)
[2023-06-18] MEDS: PANTOPRAZOLE 40 MG TABLET PO (08:40)
[2023-06-18] MEDS: ASPIRIN 81 MG ENTERIC TABLET PO (08:40)
[2023-06-18] MEDS: APIXABAN 5 MG TABLET PO ×2 (08:40→20:24)
[2023-06-18] MEDS: GABAPENTIN 300 MG CAPSULE PO ×3 (08:40→17:19)
[2023-06-18] MEDS: lisinopriL 20 MG TABLET 40 MG PO (08:40)
[2023-06-18] MEDS: LIDOCAINE 5% PATCH 1 PATCH TRANSDERM (08:41)
[2023-06-18] MEDS: NICOTINE (*PBKC) 21 MG PATCH 1 PATCH TRANSDERM (08:43)
--- NOTE | 2023-06-18 08:53 | PM.IMPN ---
Progress Note: A&P Assessment and Plan (1) Failure to thrive: Status: Acute Assessment and Plan: -consult to care coordination for placement -Initiate fall precautions -PT/ OT consult eval and treat 06-17 -Continue with plan above, care coordination continues to work on home authorization for home health (2) Diabetic neuropathy: Code(s): E11.40 - Type 2 diabetes mellitus with diabetic neuropathy, unspecified Status: Acute Assessment and Plan: -Last A1c 0 05/19 8.6 -continue home medication gabapentin (3) Type 2 diabetes mellitus with hyperglycemia: Code(s): E11.65 - Type 2 diabetes mellitus with hyperglycemia Status: Acute Assessment and Plan: hold home medication Januvia (4) COPD (chronic obstructive pulmonary disease): Code(s): J44.9 - Chronic obstructive pulmonary disease, unspecified Status: Acute Assessment and Plan: stable continue home meds Albuterol 2.5 mg inhalation q.6 hours p.r.n. for wheezing or SOB (5) Atrial fibrillation: Code(s): I48.91 - Unspecified atrial fibrillation Status: Chronic Assessment and Plan: -rate controlled, patient has pacemaker -Continue apixaban Continue metoprolol 25 mg b.i.d. for rate control (6) Tobacco dependence: Code(s): F17.200 - Nicotine dependence, unspecified, uncomplicated Status: Acute Assessment and Plan: nicotine patch daily as needed Plan Continue home medications: hold home medication metformin VTE Prophylaxis: Eliquis DIET: heart healthy Anticipated hospital stay: > 2 days Code Status: full Subjective Date/time seen: 06/18/23 08:53 Interval history: Patient provides the following HPI: chief complaint of fall at home after being discharged from post acute rehabilitation. 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 Patient reports she recently was seen and treated at [facility] she was sent home, citing she does not have any home health. , she states it was very difficult to care for herself at home citing she was trying to transfer himself from wheelchair when she encountered a fall, she denies any LOC or other injuries. She denies any fevers, chills, nausea vomiting, SOB or chest pain at this time. 06/16 Patient seen this morning she is lying in bed in no acute distress she denies any overnight events, complains of ongoing weakness she is very concerned about not being able to care for herself at home due to extreme weakness. 06/17: patient is sitting chair side she denies any overnight complaints, she reports she is still concerned about going home without any home hold as she cites she is not able to care for herself, which includes transferring from wheelchair to bathroom. Care coordination continues to look for home health at this time. Monitor hgb is at 7.5 creatinine is 1.30 Review of Systems Review of Systems: Unable to transfer from wheelchair, falls, unable to take care for herself Exam Narrative: General: sitting chair side in no acute distress HEENT: PERRL, EOMI. Oral mucosa dry Neck: Supple. No midline cervical tenderness. Respiratory: Respirations are non- labored and lungs are clear to auscultation bilaterally. Cardiovascular: Regular rate and rhythm with S1-S2. Gastrointestinal: Abdomen is soft, non-tender, and non-distended with positive bowel sounds. Skin: Warm and dry. No rash or lesions on limited exam. Extremities: No cyanosis, clubbing, or edema. Radial and pedal pulses intact. Neurological: Alert and oriented. Cranial nerves 2-12 are grossly intact. No gross focal deficits to casual conversation. Psychiatric: cooperative with mild anxiety Judgment and insight intact. Objective Data Vital Signs Vital Signs: Vital Signs - 24 hr 06/17/23 14:00 06/17/23 1
[2023-06-18 11:09] LABS: Glucose Point of Care 201 mg/dl (65-105)
[2023-06-18 16:19] LABS: Glucose Point of Care 183 mg/dl (65-105)
[2023-06-18] MEDS: LORATADINE 10 MG TABLET PO (20:24)
[2023-06-18 20:45] LABS: Glucose Point of Care 227 mg/dl (65-105)
[2023-06-18] MEDS: ACETAMINOPHEN 325 MG TABLET 650 MG PO (22:22)
[2023-06-19] VITALS (10 sets, daily range): BP systolic 119–194; BP diastolic 48–90; PULSE 62–91; RESP 16–22; TEMP 36.1–37.1; O2SAT 97–100
[2023-06-19 07:36] LABS: Basophils Percent Auto 0.4 % (0.2-1.2); Eosinophils Absolute Auto 0.2 K/mm3 (0-0.3); Eosinophils Percent Auto 5.4 % (0-4.4); Hematocrit 23.8 % (37.0-47.0); Hemoglobin 7.3 g/dL (12.0-15.0); Immature Granulocyte Absolute 0.13 K/mm3 (0.00-0.031); Immature Granulocyte Percent A 2.9 % (0-0.5); Lymphocytes Absolute Auto 1.45 K/mm3 (0.9-3.2); Lymphocytes Percent Auto 32.6 % (18.3-44.2); Mean Corpuscular HGB Conc 30.7 g/dl (32-36); Mean Corpuscular Hemoglobin 29.8 pg (26-34); Mean Corpuscular Volume 97.1 fl (80-100); Mean Platelet Volume 10.5 fl (7.4-10.4); Monocytes Absolute Auto 0.3 K/mm3 (0.1-0.6); Monocytes Percent Auto 7.4 % (2.6-8.5); Neutrophils Absolute Auto 2.3 K/mm3 (1.3-6.7); Neutrophils Percent Auto 51.3 % (45.5-73.1); Nucleated Red Blood Cells Perc 0.4 % (0.0-0.2); Platelet Count Result 282 k/mm3 (150-375); Red Blood Count 2.45 M/mm3 (4.2-5.4); White Blood Count 4.5 K/mm3 (4.5-10.0)
[2023-06-19 07:59] LABS: Alanine Aminotransferase 18 U/L (6-35); Albumin Level 2.9 g/dL (3.5-5.1); Alkaline Phosphatase 147 U/L (38-126); Anion Gap 5 mmol/L (4-12); Aspartate Amino Transferase 53 U/L (14-36); Bilirubin,Total 0.3 mg/dL (0.2-1.3); Blood Urea Nitrogen 26 mg/dL (7-17); Calcium 8.9 mg/dL (8.4-10.2); Carbon Dioxide 27 mmol/L (22-30); Chloride 105 mmol/L (98-107); Estimated CRCL calculation 25 ml/min; Estimated Glomerular Filt Rate 34; Glucose 136 mg/dL (65-110); Potassium 3.9 mmol/L (3.4-5.0); Sodium 137 mmol/L (137-145)
[2023-06-19 08:02] LABS: Glucose Point of Care 130 mg/dl (65-105)
[2023-06-19] MEDS: NICOTINE (*PBKC) 21 MG PATCH 1 PATCH TRANSDERM (08:45)
[2023-06-19] MEDS: amLODIPine BESYLATE 5 MG TABLET PO (08:45)
[2023-06-19] MEDS: LIDOCAINE 5% PATCH 1 PATCH TRANSDERM (08:45)
[2023-06-19] MEDS: PANTOPRAZOLE 40 MG TABLET PO (08:46)
[2023-06-19] MEDS: METOPROLOL TARTRATE 25 MG TABLET PO ×2 (08:46→21:30)
[2023-06-19] MEDS: GABAPENTIN 300 MG CAPSULE PO ×3 (08:46→16:30)
[2023-06-19] MEDS: APIXABAN 5 MG TABLET PO ×2 (08:46→21:30)
[2023-06-19] MEDS: ASPIRIN 81 MG ENTERIC TABLET PO (08:46)
[2023-06-19] MEDS: lisinopriL 20 MG TABLET 40 MG PO (08:46)
[2023-06-19 08:55] LABS: Iron 65 ug/dL (37-170)
[2023-06-19 09:05] LABS: Percent Iron Saturation 28 % (20-50)
[2023-06-19 10:02] LABS: Folic Acid 6.7 ng/mL (2.76->20)
[2023-06-19 11:38] LABS: Glucose Point of Care 186 mg/dl (65-105)
--- NOTE | 2023-06-19 13:16 | PM.IMPN ---
Progress Note: A&P Assessment and Plan (1) Acute UTI: Code(s): N39.0 - Urinary tract infection, site not specified Status: Acute Assessment and Plan: Pansensitive E coli, change Rocephin to Keflex 500 mg twice daily which is renally adjusted (2) Diabetic neuropathy: Code(s): E11.40 - Type 2 diabetes mellitus with diabetic neuropathy, unspecified Status: Acute Assessment and Plan: -Last A1c 0 05/19 8.6 -continue home medication gabapentin (3) Type 2 diabetes mellitus with hyperglycemia: Code(s): E11.65 - Type 2 diabetes mellitus with hyperglycemia Status: Acute Assessment and Plan: hold home medication Januvia (4) COPD (chronic obstructive pulmonary disease): Code(s): J44.9 - Chronic obstructive pulmonary disease, unspecified Status: Acute Assessment and Plan: stable continue home meds Albuterol 2.5 mg inhalation q.6 hours p.r.n. for wheezing or SOB (5) Atrial fibrillation: Code(s): I48.91 - Unspecified atrial fibrillation Status: Chronic Assessment and Plan: -rate controlled, patient has pacemaker -Continue apixaban Continue metoprolol 25 mg b.i.d. 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 Patient reports she recently was seen and treated at [facility] she was sent home, citing she does not have any home health. , she states it was very difficult to care for herself at home citing she was trying to transfer himself from wheelchair when she encountered a fall, she denies any LOC or other injuries. She denies any fevers, chills, nausea vomiting, SOB or chest pain at this time. 06/16 Patient seen this morning she is lying in bed in no acute distress she denies any overnight events, complains of ongoing weakness she is very concerned about not being able to care for herself at home due to extreme weakness. 06/17: patient is sitting chair side she denies any overnight complaints, she reports she is still concerned about going home without any home hold as she cites she is not able to care for herself, which includes transferring from wheelchair to bathroom. Care coordination continues to look for home health at this time. Monitor hgb is at 7.5 creatinine is 1.30 06/18: Patient lying in bed attempting to nap as she states she did not sleep well last night. She states that once her lidocaine patch was removed and she did not receive pain medication that she could not rest until 330 this morning. Patient reports that she is mobilizing better with therapy and she is looking forward to discharge to residential facility. Labs show hemoglobin stable at 7.3 the, creatinine 1.5 BUN 26 estimated GFR 34. Urine culture shows E coli that is susceptible to cephalosporins. We will change IV antibiotics to Keflex 500 mg twice daily which is renally adjusted. Patient awaiting insurance acceptance for residential facility. Revi
[2023-06-19] MEDS: CEPHALEXIN 500 MG CAPSULE PO ×2 (13:54→21:32)
[2023-06-19 16:34] LABS: Glucose Point of Care 151 mg/dl (65-105)
[2023-06-19 20:42] LABS: Glucose Point of Care 203 mg/dl (65-105)
[2023-06-19] MEDS: ONDANSETRON INJ 4 MG/2 ML VIAL IV PUSH (21:27)
[2023-06-19] MEDS: LORATADINE 10 MG TABLET PO (21:32)
[2023-06-19] MEDS: HYDROcodone/acetaminophen (*CRX) 5-325 MG TABLET 1 TAB PO (21:36)
[2023-06-19] MEDS: hydrALAZINE HCL 20 MG/ML VIAL 10 MG IV PUSH (21:36)
[2023-06-20 04:53] VITALS: BP 128/57; PULSE 80; RESP 16; TEMP 36.3; O2SAT 92
--- NOTE | 2023-06-20 06:57 | PM.DS ---
DS: Admitting Diagnosis Discharge Date 06/20/2023 Admitting Diagnosis Failure to thrive, diabetic neuropathy, type 2 diabetes with hyperglycemia, COPD, atrial fibrillation, tobacco dependence DS: Discharge Diagnosis Discharge Diagnosis (1) Acute UTI: Code(s): N39.0 - Urinary tract infection, site not specified Status: Acute (2) Diabetic neuropathy: Code(s): E11.40 - Type 2 diabetes mellitus with diabetic neuropathy, unspecified Status: Acute (3) Type 2 diabetes mellitus with hyperglycemia: Code(s): E11.65 - Type 2 diabetes mellitus with hyperglycemia Status: Acute (4) COPD (chronic obstructive pulmonary disease): Code(s): J44.9 - Chronic obstructive pulmonary disease, unspecified Status: Acute (5) Atrial fibrillation: Code(s): I48.91 - Unspecified atrial fibrillation Status: Chronic (6) Tobacco dependence: Code(s): F17.200 - Nicotine dependence, unspecified, uncomplicated Status: Acute (7) Failure to thrive: Status: Acute DS: Summary Hospital Course Hospital Course: This is a 72-year-old female patient who was admitted to the hospital status post fall found to urinary tract infection which culture positive for E coli. She also has chronic kidney disease. Patient had a stroke earlier in the month she went to acute rehab and then was discharged home for self-care. Patient states that she could not get around at home and only ate twice in the 7 days she was at home because she had no one to get her food and delivery services and would not deliver inside and she could not get to the door. Patient was significantly weak having difficulty transferring herself. She worked with therapy to regain strength. She is able to stand and pivot with standby assist of 1. SNF was arranged at [facility] and patient discharged today. Status at Discharge Cognitive/behavioral status at discharge: Awake alert oriented and very pleasant Functional status at discharge: wheelchair bound Overall status at discharge: patient is progressing back to baseline Time Spent with Patient Time attestation: Total time spent providing and/or coordinating discharge services: 40 minutes Time spent: Greater than 30 minutes Exam Narrative: GENERAL: Well-appearing, well-nourished, and in no acute distress. HEAD: Normocephalic, atraumatic. ENT:? Mucous membranes moist. CHEST: Clear to auscultation.? No respiratory distress. HEART: Regular rate and rhythm. ? Normal peripheral pulses. ABDOMEN: Soft, nontender, nondistended. EXTREMITIES: Normal range of motion. No peripheral edema. SKIN: Warm dry normal color NEURO: Alert and oriented x3. Patient has right upper and lower extremity weakness along with right eye lid drooping. Gross movement intact but fine movements fingers and toes/ankle not regained. Right leg is also ataxic. PSYCH: Normal mood and affect DS: Data Data Completed and Pending Completed studies during hospitalization: Chest x-ray Labs on day of discharge: Labs from last 24 hours 06/19/23 06/19/23 06/19/23 20:26 16:21 11:27 WBC RBC Hgb Hct MCV MCH MCHC RDW Plt Count MPV Immature Gran % (Auto) Neut % (Auto) Lymph % (Auto) [place] % (Auto) Eos % (Auto) Baso % (Auto) Lymph # (Auto) [place] # (Auto) Eos # (Auto) Baso # (Auto) Abs Immat Gran (auto) Absolute Neuts (auto) Absolute Nucleated RBC Nucleated RBC % Sodium Potassium Chloride Carbon Dioxide Anion Gap BUN Creatinine Estim Creat Clear Calc Estimated GFR Glucose POC Capillary Glucose 203 H 151 H 186 H Calcium Iron TIBC % Saturation Total Bilirubin AST ALT Alkaline Phosphatase Total Protein Albumin Vitamin B12 Folate 06/19/23 06/19/23 06/19/23 07:16 06:14 06:08 WBC 4.5 RBC 2.45 L Hgb 7.3 L Hct 23.8 L MCV 97.
[2023-06-20 07:38] LABS: Basophils Percent Auto 0.5 % (0.2-1.2); Eosinophils Absolute Auto 0.3 K/mm3 (0-0.3); Eosinophils Percent Auto 4.7 % (0-4.4); Hematocrit 24.7 % (37.0-47.0); Hemoglobin 7.6 g/dL (12.0-15.0); Immature Granulocyte Absolute 0.13 K/mm3 (0.00-0.031); Immature Granulocyte Percent A 2.2 % (0-0.5); Lymphocytes Absolute Auto 1.59 K/mm3 (0.9-3.2); Lymphocytes Percent Auto 26.6 % (18.3-44.2); Mean Corpuscular HGB Conc 30.8 g/dl (32-36); Mean Corpuscular Hemoglobin 29.6 pg (26-34); Mean Corpuscular Volume 96.1 fl (80-100); Mean Platelet Volume 10.2 fl (7.4-10.4); Monocytes Absolute Auto 0.5 K/mm3 (0.1-0.6); Monocytes Percent Auto 8.2 % (2.6-8.5); Neutrophils Absolute Auto 3.5 K/mm3 (1.3-6.7); Neutrophils Percent Auto 57.8 % (45.5-73.1); Nucleated Red Blood Cells Perc 0.3 % (0.0-0.2); Platelet Count Result 282 k/mm3 (150-375); Red Blood Count 2.57 M/mm3 (4.2-5.4); Red Cell Distribution Width 16.4 % (11.5-14.5)
[2023-06-20 07:53] LABS: Alanine Aminotransferase 20 U/L (6-35); Alkaline Phosphatase 167 U/L (38-126); Anion Gap 3 mmol/L (4-12); Aspartate Amino Transferase 109 U/L (14-36); Bilirubin,Total 0.3 mg/dL (0.2-1.3); Blood Urea Nitrogen 28 mg/dL (7-17); Calcium 8.9 mg/dL (8.4-10.2); Carbon Dioxide 30 mmol/L (22-30); Chloride 105 mmol/L (98-107); Estimated CRCL calculation 20 ml/min; Estimated Glomerular Filt Rate 26; Glucose 117 mg/dL (65-110); Potassium 4.3 mmol/L (3.4-5.0); Sodium 138 mmol/L (137-145)
[2023-06-20 08:00] VITALS: BP 131/55; PULSE 69; RESP 16; TEMP 36.1; O2SAT 97
[2023-06-20 08:11] LABS: Glucose Point of Care 116 mg/dl (65-105)
[2023-06-20] MEDS: NICOTINE (*PBKC) 21 MG PATCH 1 PATCH TRANSDERM (09:04)
[2023-06-20] MEDS: APIXABAN 5 MG TABLET PO (09:05)
[2023-06-20] MEDS: PANTOPRAZOLE 40 MG TABLET PO (09:05)
[2023-06-20] MEDS: CEPHALEXIN 500 MG CAPSULE PO (09:05)
[2023-06-20] MEDS: lisinopriL 20 MG TABLET 40 MG PO (09:05)
[2023-06-20] MEDS: LIDOCAINE 5% PATCH 1 PATCH TRANSDERM (09:05)
[2023-06-20] MEDS: ASPIRIN 81 MG ENTERIC TABLET PO (09:05)
[2023-06-20 09:06] VITALS: PULSE 72
[2023-06-20] MEDS: GABAPENTIN 300 MG CAPSULE PO ×2 (09:06→13:44)
[2023-06-20] MEDS: METOPROLOL TARTRATE 25 MG TABLET PO (09:06)
[2023-06-20] MEDS: amLODIPine BESYLATE 5 MG TABLET PO (09:06)
[2023-06-20] MEDS: FOLIC ACID 1 MG TABLET PO (09:08)
[2023-06-20 11:50] LABS: Glucose Point of Care 191 mg/dl (65-105)
[2023-06-20 12:00] VITALS: BP 156/54; PULSE 68; RESP 16; TEMP 36.3; O2SAT 97
--- NOTE | 2023-06-20 15:45 | PC.NURSE ---
Pt is A&O female who participated and contributed in plan of care. Pt denied any pain this morning. Pt has history of CVA with Right sided residual weakness. Pt was compliant with care while here. Pt has been monitored for any changes in status. Report was called to [facility]i at [facility] prior to discharge. Pt was transported via EMS.
== END 2023-06-20 14:25 ==
LOC: ANHED 22:37 → ANH3MEDSUR 06-18 09:30
PROVIDERS: Nurse Practitioner; Admitting Provider Internal Medicine; Emergency Provider Emergency Medicine; Visit Provider Family Medicine
DX: N39.0 Urinary tract infection, site not specified (principal); B96.20 Unspecified Escherichia coli [E. coli] as the cause of diseases classified elsewhere; R62.7 Adult failure to thrive; Z68.25 Body mass index [BMI] 25.0-25.9, adult; E11.40 Type 2 diabetes mellitus with diabetic neuropathy, unspecified; E11.65 Type 2 diabetes mellitus with hyperglycemia; I48.91 Unspecified atrial fibrillation; I12.9 Hypertensive chronic kidney disease with stage 1 through stage 4 chronic kidney disease, or unspecified chronic kidney disease; E11.22 Type 2 diabetes mellitus with diabetic chronic kidney disease; N18.9 Chronic kidney disease, unspecified; J44.9 Chronic obstructive pulmonary disease, unspecified; E78.5 Hyperlipidemia, unspecified; R29.6 Repeated falls; R94.31 Abnormal electrocardiogram [ECG] [EKG]; I69.351 Hemiplegia and hemiparesis following cerebral infarction affecting right dominant side; Z99.3 Dependence on wheelchair; F17.210 Nicotine dependence, cigarettes, uncomplicated; Z79.82 Long term (current) use of aspirin; Z79.84 Long term (current) use of oral hypoglycemic drugs; Z79.51 Long term (current) use of inhaled steroids; Z79.01 Long term (current) use of anticoagulants; Z79.891 Long term (current) use of opiate analgesic; Z79.899 Other long term (current) drug therapy
CPT/HCPCS: 36415; 71045; 80053; 81001; 82607; 82746; 82948; 83540; 83550; 83735; 85025; 87077; 87086; 87088; 87186; 93005; 96365; 96366; 96375; 96376; 97110; 97161; 97165; 97530; 99285; A9270; G0378; J0360; J0696; J2405

== ENCOUNTER 2023-07-01 10:04 | Observation (INO) | payer MEDICARE, MEDICAID, SELFPAY ==
[2023-07-01] VITALS (20 sets, daily range): BP systolic 82–147; BP diastolic 40–83; PULSE 68–79; RESP 15–24; TEMP 36.1–36.7; O2SAT 92–99; BMI 27.5
--- NOTE | ~2023-07-01 | CT_ITS ---
EXAMINATION: CT facial & cervical spine wo DATE: 07/01/2023 11:39 INDICATION: Fall. Neck pain. TECHNIQUE: Computed tomography (CT) of the maxillofacial region and cervical spine was performed with out intravenous contrast. Automated exposure control and iterative reconstruction technique were empl oyed. The dose-length product was 405.76 mGy-cm. COMPARISON: Head CT 06/05/2023 FINDINGS: MAXILLOFACIAL CT: There is rightward deviation of the nasal septum. No fracture. There is mild mucosal thickening in th e ethmoid sinuses. There is extensive dental disease. The mastoid air cells are normal. There is hype rdense soft tissue in the right orbit. There is an old blowout fracture of floor of right orbit. CERVICAL SPINE CT: There are nodules in the thyroid measuring up to 13 mm, likely not clinically significant. There is c alcified atherosclerosis of the aorta and many of the other arteries. Is mild emphysema. There is mil d scarring in the upper lobes. There are widespread lytic and sclerotic lesions of bone. Vertebral jacky dy heights are normal. There is moderately decreased disc height at C5-C6 there is a fracture of T2 s pinous process.. The following disc levels are specifically discussed: C2-C3: There is mild bilateral uncovertebral joint osteoarthritis. There is severe right and mild lef t facet joint osteoarthritis. There is no neural foraminal stenosis. There is no central canal stenos is. C3-C4: There is mild right and moderate left uncovertebral joint osteoarthritis. There is moderate ri ght and severe left facet joint osteoarthritis. There is mild left neural foraminal stenosis. There i s no central canal stenosis. C4-C5: There is mild bilateral uncovertebral joint osteoarthritis. There is moderate right and mild l eft facet joint osteoarthritis. There is mild left neural foraminal stenosis. There is no central can al stenosis. C5-C6: There is no uncovertebral joint osteoarthritis. There is severe right and mild left facet join t osteoarthritis. There is mild right neural foraminal stenosis. There is no central canal stenosis. C6-C7: There is no uncovertebral joint osteoarthritis. There is severe right and mild left facet join t osteoarthritis. There is mild right neural foraminal stenosis. There is no central canal stenosis. C7-T1: There is no uncovertebral joint osteoarthritis. There is severe bilateral facet joint osteoart hritis. There is mild bilateral neural foraminal stenosis. There is no central canal stenosis. IMPRESSION: 1. Pathologic fracture of T2 spinous process. 2. Widespread bone lesions and right orbital mass, consistent with metastatic breast cancer. Reviewed, dictated and finalized at location A. IMPRESSION: 1. Pathologic fracture of T2 spinous process. 2. Widespread bone lesions and right orbital mass, consistent with metastatic b reast cancer.
--- NOTE | ~2023-07-01 | US_ITS ---
EXAMINATION: US venous doppler UE RT DATE: 07/02/2023 10:56 INDICATION: Right upper limb edema. TECHNIQUE: Grayscale ultrasound images without and with compression and Doppler ultrasound images of the right upper extremity veins were obtained. COMPARISON: None. FINDINGS: The visualized portions of the right internal jugular vein, subclavian vein, axillary vein, brachial veins, basilic vein, cephalic vein, radial vein, and ulnar vein are patent. IMPRESSION: 1. No deep venous thrombosis. Reviewed, dictated and finalized at location A.
--- NOTE | ~2023-07-01 | CT_ITS ---
EXAMINATION: CT thoracic lumbar wo con DATE: 07/02/2023 11:04 INDICATION: Back pain. Fall. TECHNIQUE: Computed tomography (CT) of the thoracic and lumbar spine was performed without intravenou s contrast. Automated exposure control and iterative reconstruction technique were employed. The dose -length product was 825.15 mGy-cm. COMPARISON: None FINDINGS: CT THORACIC SPINE: There is a 17 mm nodule in right thyroid lobe. There is mild emphysema. There are small pleural effusions. There are pacer wires in right atrium and right ventricle. There are coronar y artery calcifications. There are widespread mixed sclerotic and lytic lesions of bone, consistent w ith metastatic disease. There is a pathologic fracture of T2 spinous process. There is 10 degrees lev oscoliosis of cervicothoracic spine. There is mild anterior wedging of T7 vertebral body. There is mi ldly decreased disc height at multiple levels. There is multilevel facet joint osteoarthritis, mild a t most levels. There is mild neural foraminal stenosis bilaterally at C7-T1. No central canal stenosi s. CT LUMBAR SPINE: Partially visualized is a 3.7 cm mass in the liver. There is a 2.2 cm mass in right adrenal gland. There is a 2.8 cm mass in left adrenal gland containing fat, consistent with a myeloli albert. There is calcified atherosclerosis of the aorta and many of the other arteries. Bone alignment is normal. Vertebral body heights are normal. There are a lytic and sclerotic lesions throughout the bones. Intervertebral disc heights are normal. The following disc levels are specifically discussed: L1-L2: The disc does not extend beyond the endplate margin. There is mild bilateral facet joint osteo arthritis. There is no neural foraminal stenosis. There is no central canal stenosis. L2-L3: The disc is bulging. There is mild bilateral facet joint osteoarthritis. There is mild bilater al neural foraminal stenosis. There is no central canal stenosis. L3-L4: The disc is bulging. There is mild bilateral facet joint osteoarthritis. There is mild bilater al neural foraminal stenosis. There is mild central canal stenosis. L4-L5: The disc is bulging. There is severe bilateral facet joint osteoarthritis. There is mild bilat eral neural foraminal stenosis. There is moderate central canal stenosis. L5-S1: The disc does not extend beyond the endplate margin. There is severe bilateral facet joint ost eoarthritis. There is mild bilateral neural foraminal stenosis. There is no central canal stenosis. IMPRESSION: 1. Widespread bone lesions and liver mass, consistent with metastatic disease. 2. Right adrenal mass, which may be an adenoma or metastatic disease. 3. Pathologic fracture of T2 spinous process. 4. Mild thoracic and lumbar spondylosis. Reviewed, dictated and finalized at location A.
--- NOTE | ~2023-07-01 | CT_ITS ---
EXAMINATION: CT brain wo con DATE: 07/01/2023 11:39 INDICATION: Fall. Neck pain. TECHNIQUE: Computed tomography (CT) of the head was performed without intravenous contrast. The mA wa s adjusted according to patient size. Iterative reconstruction technique was employed. The dose-lengt h product was 681.00 mGy-cm. COMPARISON: Head CT 06/05/2023, 05/18/2023 FINDINGS: There is an old infarct involving posterior limb left internal capsule. There is no intracr anial hemorrhage or acute infarction. The ventricles are normal in size. There is extensive hyperdens e soft tissue in the right orbit with involvement of the superior rectus muscle. The paranasal sinuse s are clear. The mastoid air cells are normal. IMPRESSION: 1. Old infarct involving posterior limb left internal capsule. 2. Extensive hyperdense soft tissue in right orbit, consistent with metastatic breast cancer. Reviewed, dictated and finalized at location A.
--- NOTE | 2023-07-01 10:20 | ECG_ITS ---
Measurements Intervals [place] Rate: 70 P: 60 W[place]: 204 QRS: 11 QRSD: 89 T: 75 QT: 465 AVG RR 855 QTc: 485 QTcB 502 QTcF 489 Interpretive Statements SINUS RHYTHM NONSPECIFIC T-WAVE ABNORMALITY PROLONGED QT INTERVAL ABNORMAL ECG SEE SCANNED COPY FOR SIGNATURE MTDD
--- NOTE | 2023-07-01 10:20 | PC.NURSE ---
EDP Dhaval notified of patient's presentation and symptoms. Per EDP, order CT brain, neck, and face and 4mg Zofran IVP
[2023-07-01] MEDS: ONDANSETRON INJ 4 MG/2 ML VIAL IV PUSH (10:33)
--- NOTE | 2023-07-01 10:59 | PC.NURSE ---
pt will not sit still for CT scan and unable to lay flat due to nausea. BP 80/40. EDP Dhaval made aware.
--- NOTE | 2023-07-01 11:00 | PC.NURSE ---
pt has received 1 L of Normal Saline by ems guest experience captain.
[2023-07-01 11:01] LABS: Basophils Percent Auto 0.4 % (0.2-1.2); Eosinophils Absolute Auto 0.1 K/mm3 (0-0.3); Eosinophils Percent Auto 1.6 % (0-4.4); Immature Granulocyte Absolute 0.21 K/mm3 (0.00-0.031); Immature Granulocyte Percent A 2.6 % (0-0.5); Lymphocytes Absolute Auto 1.93 K/mm3 (0.9-3.2); Lymphocytes Percent Auto 23.5 % (18.3-44.2); Mean Corpuscular HGB Conc 28.8 g/dl (32-36); Mean Corpuscular Hemoglobin 29.7 pg (26-34); Mean Corpuscular Volume 103.4 fl (80-100); Monocytes Absolute Auto 0.6 K/mm3 (0.1-0.6); Neutrophils Absolute Auto 5.3 K/mm3 (1.3-6.7); Neutrophils Percent Auto 64.9 % (45.5-73.1); Nucleated Red Blood Cells Perc 1.6 % (0.0-0.2); Platelet Count Result 256 k/mm3 (150-375); Red Blood Count 1.48 M/mm3 (4.2-5.4); Red Cell Distribution Width 19.1 % (11.5-14.5); White Blood Count 8.2 K/mm3 (4.5-10.0)
[2023-07-01 11:07] LABS: Hematocrit 15.3 % (37.0-47.0); Hemoglobin 4.4 g/dL (12.0-15.0)
[2023-07-01 11:10] LABS: Alanine Aminotransferase 17 U/L (6-35); Albumin Level 3.3 g/dL (3.5-5.1); Alkaline Phosphatase 128 U/L (38-126); Anion Gap 12 mmol/L (4-12); Aspartate Amino Transferase 49 U/L (14-36); Bilirubin,Total 0.5 mg/dL (0.2-1.3); Blood Urea Nitrogen 36 mg/dL (7-17); Calcium 8.9 mg/dL (8.4-10.2); Carbon Dioxide 20 mmol/L (22-30); Chloride 106 mmol/L (98-107); Estimated CRCL calculation 23 ml/min; Estimated Glomerular Filt Rate 32; Glucose 211 mg/dL (65-110); Potassium 4.9 mmol/L (3.4-5.0); Sodium 138 mmol/L (137-145)
[2023-07-01] MEDS: METOCLOPRAMIDE HCL INJ 10 MG/2 ML VIAL IV PUSH (11:10)
[2023-07-01] MEDS: SODIUM CHLORIDE 0.9% IV 1,000 ML 999 ML IV CONT (11:10)
[2023-07-01] MEDS: diphenhydrAMINE HCl INJ 50 MG/ML VIAL 25 MG IV PUSH (11:11)
[2023-07-01] MEDS: LORazepam INJ (*CRX) 2 MG/ML VIAL 0.5 MG IV PUSH (11:11)
[2023-07-01 11:18] LABS: Anisocytosis 1+; Hypochromasia 2+; Microcytosis 1+ (NORMAL); Platelet Estimate Adequate (Adequate)
[2023-07-01 11:20] LABS: Polychromasia 1+; Schistocytes None Seen
--- NOTE | 2023-07-01 11:27 | ED.FALL ---
HPI - Fall General Chief Complaint: Fall Stated Complaint: mult. falls, hypotensive Time Seen by Provider: 07/01/23 10:58 History of Present Illness HPI Narrative: 72-year-old female presenting to the emergency department for evaluation after having a fall from wheelchair. Patient states she did not fall from the wheelchair but slid to the floor. Patient arrived in a C-collar and was restless and agitated. Patient denies any pain or complaint. Patient does have history of type 2 diabetes, diabetic neuropathy, high cholesterol, hypertension, chronic kidney disease, atrial fibrillation and CVA. Patient is on Eliquis. Patient also has a prior history metastatic breast cancer, patient is not currently getting any treatment for the cancer but patient was scheduled to have follow-up with Oncology in the future for restarting treatment. Related Data Home Medications Medication Instructions Recorded Confirmed aspirin 81 mg tablet,delayed 81 mg PO DAILY 06/17/23 07/01/23 release lisinopril 40 mg tablet 40 mg PO DAILY 06/17/23 07/01/23 bisacodyl 10 mg rectal suppository 10 mg RECTAL DAILY PRN Constipation 07/01/23 07/01/23 dicyclomine 10 mg capsule 10 mg PO Q6H PRN Abdominal cramping 07/01/23 07/01/23 magnesium citrate (Citroma oral 300 ml PO DAILY PRN Constipation 07/01/23 07/01/23 solution) magnesium hydroxide 400 mg/5 mL 30 ml PO HS PRN Constipation 07/01/23 07/01/23 oral suspension (Milk of Magnesia) ondansetron HCl 4 mg tablet 4 mg PO Q8H PRN Nausea And Vomiting 07/01/23 07/01/23 sitagliptin phosphate 50 mg tablet 50 mg PO DAILY 07/01/23 07/01/23 sodium phosphates 19 gram-7 1 ml RECTAL DAILY PRN Constipation 07/01/23 07/01/23 gram/118 mL enema (Fleet Enema) Allergies Allergy/AdvReac Type Severity Reaction Status Date / Time iohexol Allergy Severe Anaphylaxis Verified 07/01/23 16:24 [From contrast - CT, X-RAY] phenylbutazone Allergy Anaphylaxis Verified 07/01/23 16:24 [From Butazolidin] adhesive tape AdvReac Rash Verified 07/01/23 16:24 levofloxacin AdvReac Itching Verified 07/01/23 16:24 Review of Systems Review of Systems: All systems reviewed & are unremarkable except as noted in HPI and below PMFSH Past Medical History Medical History (Updated 07/01/23 @ 19:33 by Rj Puentes MD) Breast cancer Status post bilateral mastectomy with chemo radiation. She has metastatic disease to bones and right orbit. Stopped treatment in September 2021. Cerebrovascular accident Chronic kidney disease Chronic obstructive pulmonary disease Coronary artery disease Diverticulitis Hyperlipidemia Hypertension Kidney stones Obstructive sleep apnea Does not use CPAP. Paroxysmal atrial fibrillation Tobacco abuse Type 2 diabetes mellitus Surgical History Surgical History (Updated 07/01/23 @ 17:32 by Nohemi Grace PA-C) History of bilateral mastectomy (2015) History of colonoscopy with polypectomy History of coronary artery stent placement History of permanent cardiac pacemaker placement Family History Family History Father , Onset Age: 45 Mother , Onset Age: 65 Breast cancer Sibling , Onset Age: 50 Brain cancer Daughter , Onset Age: 41 Heroin overdose Daughter Alcoholism Social History Social History (Updated 07/01/23 @ 17:33 by Nohemi Grace PA-C) Social History: Surrogate medical decision maker: Joey Garsia, friend. Code status: Very full code. Smoking packs per day: 1 Smoking cigarettes per day: 20.0 Years smoked: 47 Smoking pack-years: 47.00 Smoking status: Former smoker Tobacco type: cigarettes Second hand tobacco smoke exposure: No Alcohol intake: never Drinks per week: 0 Substance use: never Substance use type: does not use Do You Feel Safe in your Home?: No Lack of Transportation: No Lack of Food: Never True Current Housing: I Have Housing
--- NOTE | 2023-07-01 11:33 | PC.NURSE ---
pt moving to room [address] scan[address]
--- NOTE | 2023-07-01 12:07 | PC.NURSE ---
when walking into room pt attempting to get out of bed. bed alarm placed under pt. bed in lowest position with bed rails up. bed locked. yellow clasp attached to bracelet and yellow triangle placed outside of door.
[2023-07-01] MEDS: PANTOPRAZOLE SODIUM IV 40 MG VIAL 80 MG IV PUSH (13:01)
--- NOTE | 2023-07-01 13:54 | PM.IMHP ---
H&P: HPI History of Present Illness Date/Time: 07/01/23 16:00 Chief Complaint: Several falls, low blood pressure. Narrative: This is a 72-year-old female with history of stroke, metastatic breast cancer, hypertension, hyperlipidemia, chronic kidney disease, and type 2 diabetes mellitus who presented to the emergency department via EMS from [facility] for evaluation of several falls and low blood pressure. The patient provides the following history. She has been feeling very weak today and reports having a couple of falls due to the weakness and feelings of lightheadedness. She hit her head in 1 of the falls but there was no loss of consciousness. She was sent in for evaluation after complaining discomfort in the neck. On EMS arrival she was hypotensive and was given a normal saline bolus with improvement her blood pressures. In the ED she had a grossly melanotic stool and with further questioning she mentions that her stools have been dark for a couple of weeks, according to staff at her snf. She endorses intermittent epigastric discomfort similar to indigestion, intermittent bloating, and belching. She is not having any significant neck pain at this time but complains of pain in the mid to low back. She denies syncope, chest pain, pleuritic pain, and hematemesis. She has no known history of esophagitis, gastritis, or peptic ulcers. He denies NSAID use. No increasing weakness from baseline, paresthesias, or saddle anesthesia. In the ED: Blood pressure was as low as 82/40 but has stabilized with IV fluids. The remainder of her vital signs have been stable. Labs were significant for WBC count of 8.2, hemoglobin 4.4, hematocrit 15.3, MCV 103.4, BUN 36, creatinine 1.60, glucose 211. Brain, head, facial bones, and cervical spine CTs did not show any acute findings but did note a pathologic fracture of the T2 spinous process, widespread bone lesions and right orbital mass consistent with metastatic breast cancer, and old stroke. She was given 80 mg IV pantoprazole, 2 units packed red blood cells were ordered, and she is being admitted in this setting for further treatment and evaluation. Review of Systems Review of Systems: 12 systems were reviewed and are negative except for as per HPI. ON LICENSE OF [facility] Past Medical History Medical History Breast cancer Status post bilateral mastectomy with chemo radiation. She has metastatic disease to bones and right orbit. Stopped treatment in September 2021. Cerebrovascular accident Chronic kidney disease Chronic obstructive pulmonary disease Coronary artery disease Diverticulitis Hyperlipidemia Hypertension Kidney stones Obstructive sleep apnea Does not use CPAP. Paroxysmal atrial fibrillation Tobacco abuse Type 2 diabetes mellitus Surgical History Surgical History History of bilateral mastectomy (2015) History of colonoscopy with polypectomy History of coronary artery stent placement History of permanent cardiac pacemaker placement Family History Family History Father , Onset Age: 45 Mother , Onset Age: 65 Breast cancer Sibling , Onset Age: 50 Brain cancer Daughter , Onset Age: 41 Heroin overdose Daughter Alcoholism Social History Social History Social History: Surrogate medical decision maker: Joey Garsia, friend. Code status: Very full code. Smoking packs per day: 1 Smoking cigarettes per day: 20.0 Years smoked: 47 Smoking pack-years: 47.00 Smoking status: Former smoker Tobacco type: cigarettes Second hand tobacco smoke exposure: No Alcohol intake: never Drinks per week: 0 Substance use: never Substance use type: does not use Do You Feel Safe in your Home?: No Lack of Transportation: No [place]
[2023-07-01] MEDS: SODIUM CHLORIDE 0.9% IV 250 ML 30 ML IV CONT (14:31)
[2023-07-01] MEDS: TUBING, BLOOD PLUM PUMP TUBING 1 EACH XX (14:31)
[2023-07-01] MEDS: HYDROmorphone HCL INJ (*CRX) 1 MG/ML SYR 0.5 MG IV PUSH (15:05)
--- NOTE | 2023-07-01 16:45 | ADMGEN ---
This patient, Vanita Blackwood, was admitted to IMU Room 212-01. Patient/family oriented to hospital policies and general routines including ID bracelet, bed and alarms, visiting hours, pain management, procedures, bathroom and other care routines, personal items, smoking policy, room service/diet, and visiting hours. Information on how to activate the Rapid Response Team has been discussed. Patient/Family are encouraged to report perceived risks to care and to ask questions if they do not understand what they are told or what they should do.
[2023-07-01] MEDS: GABAPENTIN 300 MG CAPSULE PO (21:06)
[2023-07-01] MEDS: LORATADINE 10 MG TABLET PO (21:06)
[2023-07-02] VITALS (19 sets, daily range): BP systolic 96–150; BP diastolic 26–83; PULSE 74–92; RESP 14–22; TEMP 36.2–37.3; O2SAT 93–100
[2023-07-02 00:05] LABS: Glucose Point of Care 126 mg/dl (65-105)
[2023-07-02 03:02] LABS: Hematocrit 24.7 % (37.0-47.0); Hemoglobin 7.5 g/dL (12.0-15.0); Mean Corpuscular HGB Conc 30.4 g/dl (32-36); Mean Corpuscular Hemoglobin 28.8 pg (26-34); Mean Platelet Volume 9.9 fl (7.4-10.4); Platelet Count Result 190 k/mm3 (150-375); Red Cell Distribution Width 17.9 % (11.5-14.5); White Blood Count 5.6 K/mm3 (4.5-10.0)
[2023-07-02 03:12] LABS: Anion Gap 3 mmol/L (4-12); Blood Urea Nitrogen 33 mg/dL (7-17); Calcium 8.6 mg/dL (8.4-10.2); Carbon Dioxide 25 mmol/L (22-30); Chloride 109 mmol/L (98-107); Estimated CRCL calculation 25 ml/min; Estimated Glomerular Filt Rate 30; Glucose 109 mg/dL (65-110); Potassium 4.6 mmol/L (3.4-5.0); Sodium 137 mmol/L (137-145)
[2023-07-02 07:14] LABS: Glucose Point of Care 100 mg/dl (65-105)
[2023-07-02] MEDS: GABAPENTIN 300 MG CAPSULE PO ×3 (08:47→16:45)
[2023-07-02] MEDS: LIDOCAINE 5% PATCH 1 PATCH TRANSDERM (08:47)
--- NOTE | 2023-07-02 10:29 | PC.NURSE ---
Pt to CT for spinal CT. Pt to be transferred to GI lab for EGD after CT scan. CARMINA Marquez in GI lab received report on pt from this RN.
[2023-07-02] MEDS: LACTATED RINGERS 1,000 ML 150 ML IV CONT (11:23)
[2023-07-02 11:26] LABS: Glucose Point of Care 86 mg/dl (65-105)
--- NOTE | 2023-07-02 11:40 | WPDGICN ---
Assessment and Plan Assessment and plan (1) Melena: Code(s): K92.1 - Melena Status: Acute Assessment and Plan: will proceed with urgent EGD, assess if ulcers, esophagitis, etc she required blood transfusion hold eliquis (2) Acute on chronic anemia: Code(s): D64.9 - Anemia, unspecified Status: Acute Assessment and Plan: s/p blood transfusion keep hgb>7 she has baseline anemia with hgb 9-10 probably from metastatic breast cancer, ckd (3) Fall: Code(s): W19.XXXA - Unspecified fall, initial encounter Status: Acute (4) Metastatic disease: Code(s): C79.9 - Secondary malignant neoplasm of unspecified site Status: Chronic (5) Chronic anticoagulation: Code(s): Z79.01 - long term care administrator (current) use of anticoagulants Status: Acute Assessment and Plan: on hold (6) Paroxysmal atrial fibrillation: Code(s): I48.0 - Paroxysmal atrial fibrillation Status: Acute Assessment and Plan: hold eliquis (7) Breast cancer: Code(s): C50.919 - Malignant neoplasm of unspecified site of unspecified female breast Status: Acute Assessment and Plan: evidence of met to bones prognosis is guarded she needs hem-onc evaluation GI Consult Note Consult date/time: 07/02/23 11:40 Reason for consult: melena, acute GIB HPI: Vanita Blackwood is a 72 year old female with history of stroke, metastatic breast cancer, hypertension, hyperlipidemia, chronic kidney disease, pAfib on eliquis and type 2 diabetes mellitus who presented to the emergency department via EMS from [facility] for evaluation of several falls and low blood pressure. She came here with generalized weakness, being lightheaded and also falls. On arrival ER physician noted melena, she says that noticed dark stools last several days. Initial Blood pressure in ER was as low as 82/40 but has stabilized with IV fluids. Labs showed WBC count of 8.2, hemoglobin 4.4, hematocrit 15.3, MCV 103.4, BUN 36, creatinine 1.60, glucose 211. Brain, head, facial bones, and cervical spine CTs did not show any acute findings but did note a pathologic fracture of the T2 spinous process, widespread bone lesions and right orbital mass consistent with metastatic breast cancer. She received blood transfusion and feeling better, last colonoscopy about [address] scan reviewed, Pathologic fracture of T2 spinous process. Widespread bone lesions and right orbital mass, consistent with metastatic breast cancer. Review of Systems Constitutional: Constitutional: Reports lethargy and Reports weakness Eyes: Eyes: Denies blurry vision ENT: Reports Normal hearing present Cardiovascular: Cardiovascular: Reports lightheadedness Respiratory: Respiratory: Denies cough Gastrointestinal: Gastrointestinal: Reports melena Genitourinary: Genitourinary: Denies dysuria Musculoskeletal: Musculoskeletal: Reports arthralgias Integumentary/Breasts: Skin/Breast: Denies rash Neurologic: Denies headache(s) Psychiatric: Psychiatric: Denies behavioral changes [facility] Past Medical History Medical History (Updated 07/02/23 @ 11:53 by Lance Menendez MD) Acute on chronic anemia Breast cancer Status post bilateral mastectomy with chemo radiation. She has metastatic disease to bones and right orbit. Stopped treatment in September 2021. Cerebrovascular accident Chronic kidney disease Chronic obstructive pulmonary disease Coronary artery disease Diverticulitis Hyperlipidemia Hypertension Kidney stones Melena Obstructive sleep apnea Does not use CPAP. Paroxysmal atrial fibrillation Tobacco abuse Type 2 diabetes mellitus Surgical History Surgical History History of bilateral mastectomy (2015) History of colonoscopy with polypectomy History of coronary artery stent placement History of permanent cardiac pacemaker placement Family History Family Hi
--- NOTE | 2023-07-02 11:40 | WPDANESEPPF ---
Anes - Initial Pre Proc Eval Procedure: Operation Date: 07/02/23 15:00 Proposed Procedures p Esophagogastroduodenoscopy - Lance Menendez MD Date/Time: 07/02/23 11:40 Surgeon: Vin Douglas DO Pre Op Diagnosis: GI Bleed/Anemia Patient Data Age: 72 Gender: F Height: 1.57 m Weight: 66.1 kg Last Vital Signs Temp 99.2 F 07/02/23 11:20 Pulse 88 07/02/23 11:20 Resp 18 07/02/23 11:20 BP 127/63 07/02/23 11:20 Pulse Ox 97 07/02/23 11:20 O2 Del Method Room Air 07/02/23 11:20 Allergies Allergy/AdvReac Type Severity Reaction Status Date / Time iohexol Allergy Severe Anaphylaxis Verified 07/01/23 16:24 [From contrast - CT, X-RAY] phenylbutazone Allergy Anaphylaxis Verified 07/01/23 16:24 [From Butazolidin] adhesive tape AdvReac Rash Verified 07/01/23 16:24 levofloxacin AdvReac Itching Verified 07/01/23 16:24 Home Medications Medication Instructions Recorded Confirmed Type acetaminophen 325 mg tablet 650 mg PO Q6H PRN Mild Pain (1-3) 06/10/23 07/01/23 Rx Or Fever #0 tabs apixaban 5 mg tablet (Eliquis) 5 mg PO BID #30 tabs 06/10/23 07/01/23 Rx cetirizine 10 mg tablet 10 mg PO HS #0 tabs 06/10/23 07/01/23 Rx gabapentin 300 mg capsule 300 mg PO TID #90 caps 06/10/23 07/01/23 Rx (Neurontin) lidocaine 4 % topical patch 1 patch transdermal DAILY #30 ea 06/10/23 07/01/23 Rx (Lidocaine Pain Relief) metoprolol tartrate 25 mg tablet 25 mg PO BID #60 tabs 06/10/23 07/01/23 Rx pantoprazole 40 mg tablet,delayed 40 mg PO QAM #30 tabs 06/10/23 07/01/23 Rx release aspirin 81 mg tablet,delayed 81 mg PO DAILY 06/17/23 07/01/23 History release lisinopril 40 mg tablet 40 mg PO DAILY 06/17/23 07/01/23 History amlodipine 5 mg tablet (Norvasc) 5 mg PO QAM #0 tabs 06/20/23 07/01/23 Rx folic acid 1 mg tablet 1 mg PO DAILY #30 tabs 06/20/23 07/01/23 Rx tramadol 50 mg tablet 50 mg PO Q6H PRN Pain (Scale Score 06/20/23 07/01/23 Rx 7-10) #20 tabs bisacodyl 10 mg rectal suppository 10 mg RECTAL DAILY PRN Constipation 07/01/23 07/01/23 History dicyclomine 10 mg capsule 10 mg PO Q6H PRN Abdominal cramping 07/01/23 07/01/23 History magnesium citrate (Citroma oral 300 ml PO DAILY PRN Constipation 07/01/23 07/01/23 History solution) magnesium hydroxide 400 mg/5 mL 30 ml PO HS PRN Constipation 07/01/23 07/01/23 History oral suspension (Milk of Magnesia) ondansetron HCl 4 mg tablet 4 mg PO Q8H PRN Nausea And Vomiting 07/01/23 07/01/23 History sitagliptin phosphate 50 mg tablet 50 mg PO DAILY 07/01/23 07/01/23 History sodium phosphates 19 gram-7 1 ml RECTAL DAILY PRN Constipation 07/01/23 07/01/23 History gram/118 mL enema (Fleet Enema) Laboratory Tests 07/01/23 07/01/23 07/02/23 10:54 23:46 02:55 WBC 5.6 K/mm3 (4.5-10.0) RBC 2.60 L M/mm3 (4.2-5.4) Hgb 7.5 L D g/dL (12.0-15.0) Hct 24.7 L % (37.0-47.0) MCV 95.0 D fl (80-100) MCH 28.8 pg (26-34) MCHC 30.4 L g/dl (32-36) RDW 17.9 H % (11.5-14.5) Plt Count 190 k/mm3 (150-375) MPV 9.9 fl (7.4-10.4) Sodium 137 mmol/L (137-145) Potassium 4.6 mmol/L (3.4-5.0) Chloride 109 H mmol/L (98-107) Carbon Dioxide 25 mmol/L (22-30) Anion Gap 3 L mmol/L (4-12) BUN 33 H mg/dL (7-17) Creatinine 1.70 H mg/dL (0.7-1.0) Estim Creat Clear Calc 25 ml/min Estimated GFR 30 L (59 - ) Glucose 109 mg/dL (65-110) POC Capillary Glucose 126 H mg/dl (65-105) Calcium 8.6 mg/dL (8.4-10.2) Blood Type O Positive Antibody Screen Negative Crossmatch See Detail 07/02/23 07/02/23 06:46 11:25 WBC RBC Hgb Hct MCV MCH MCHC RDW Plt Count MPV Sodium
--- NOTE | 2023-07-02 12:00 | PC.NURSE ---
RN informed Dr. Douglas of EGD results. New order to obtain another H&H and call MD with results
[2023-07-02 12:12] LABS: Glucose Point of Care 92 mg/dl (65-105)
--- NOTE | 2023-07-02 12:30 | PC.NURSE ---
Pt returned from GI lab via stretcher. Report received from CARMINA Hernandez @ [id number]
[2023-07-02 12:42] LABS: Glucose Point of Care 97 mg/dl (65-105)
[2023-07-02 13:17] LABS: Hematocrit 26.5 % (37.0-47.0); Hemoglobin 8.1 g/dL (12.0-15.0)
[2023-07-02 16:20] LABS: Glucose Point of Care 161 mg/dl (65-105)
--- NOTE | 2023-07-02 17:22 | PM.IMPN ---
Progress Note: A&P Assessment and Plan (1) Acute on chronic anemia: Code(s): D64.9 - Anemia, unspecified Status: Acute (2) Melena: Code(s): K92.1 - Melena Status: Acute (3) Anemia: Code(s): D64.9 - Anemia, unspecified Status: Acute Plan # acute on chronic anemia -patient has anemia of chronic disease secondary to her malignancy -patient EGD with Dr. 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 Baseline hemoglobin around 9-10 -melena? however EGD showed no obvious source of bleed # mechanical fall # pathological T2 spinous process fracture -likely syncope from anemia -continue monitor, with acetic vitals -patient has a fracture of her spinous processes of thoracic vertebrae, continue supportive # chronic conditions -metastatic breast disease to liver and bone -allergies: loratadine -type 2 diabetes: Sliding scale insulin, Accu-Cheks a.c. HS, hypoglycemia protocol, A1c 8.6. at home on sitagliptin -peripheral neuropathy diabetic neuropathy continue gabapentin -chronic constipation: bisacodyl, magnesium citrate, milk of magnesium -essential hypertension: Norvasc -paroxysmal atrial fibrillation: Holding anticoagulation with bleed concern, anemia. Diet: Diabetic diet DVT prophylaxis: SCDs, avoid chemoprophylaxis with anemia Code status: Full code Disposition: Continue monitoring on medical floor Time Spent With Patient Time: 35 minutes Subjective Date/time seen: 07/02/23 17:22 Interval history: Patient was admitted yesterday with acute anemia hemoglobin 4.4 given 2 units packed red blood cells improved to 7.5. Patient had endoscopy today with Dr. Benoit with findings of duodenitis without active bleeding. Patient has known breast cancer which is metastatic. Patient has fever, chills, nausea vomiting diarrhea. Review of Systems Review of Systems: 10 point ROS complete, negative other than what is specified in HPI. Exam Narrative: - GENERAL: Pleasant woman no acute distress - EYES: EOMI. Anicteric. - HENT: Moist mucous membranes. - LUNGS: Clear to auscultation bilaterally, no wheezing, rhonchi, or rales. - CARDIOVASCULAR: Regular rate and rhythm. No murmur. No JVD. - ABDOMEN: Soft, non-tender and non-distended. No palpable masses. - EXTREMITIES: No edema. Peripheral pulses 2+. Non-tender. - NEUROLOGIC: No focal neurological deficits. CN II-XII grossly intact. - PSYCHIATRIC: Awake, Alert and oriented x 3. Appropriate mood and affect. - SKIN: No rashes or lesions. Warm. - LYMPH: No cervical lymphadenopathy. Objective Data Vital Signs Vital Signs: Vital Signs - 24 hr 07/01/23 18:23 07/01/23 17:41 07/01/23 18:38 Temperature 36.7 C 36.6 C 36.6 C Pulse Rate 75 78 76 Respiratory Rate 20 20 16 Blood Pressure 137/48 L 125/52 L 139/48 L Pulse Oximetry 92 93 98 Oxygen Delivery Oxygen Flow Rate 07/01/23 18:58 07/01/23 19:58 07/01/23 20:04 Temperature 36.6 C 36.1 C L Pulse Rate 78 79 79 Respiratory Rate 18 16 Blood Pressure 147/52 H 142/63 H Pulse Oximetry 97 95 Oxygen Delivery Oxygen Flow Rate 07/01/23 18:00 07/01/23 20:58 07/02/23 00:15 Temperature 36.3 C L 36.2 C L Pulse Rate 76 78 75 Respiratory Rate 16 18 Blood Pressure 127/55 L 137/83 Pulse Oximetry 99 96 Oxygen Delivery Oxygen Flow Rate 07/02/23 00:15 07/02/23 00:16 07/01/23 20:00 Temperature 36.2 C L Pulse Rate 75 76 Respiratory Rate 18 Blood Pressure 137/83 150/58 H Pulse Oximetry 96 Oxygen Delivery Oxygen Flow Rate 07/01/23 22:00 07/01/23 20:00 07/02/23 00:00 Temperature Pulse Rate 75 75 84 Respiratory Rate 18 Blood Pressure Pulse Oximetry 96 Oxygen Delivery Room Air Oxygen Flow Rate 07/02/23 00:00 07/02/23 02:00 07/02/23 04:17 Temperature 36.2 C L Pulse Rate 75 75 77 Respiratory Rate 18 20 Blood Pre
[2023-07-02 19:40] LABS: Glucose Point of Care 170 mg/dl (65-105)
[2023-07-02] MEDS: LORATADINE 10 MG TABLET PO (20:58)
[2023-07-03] VITALS (8 sets, daily range): BP systolic 130–147; BP diastolic 47–60; PULSE 73–110; RESP 16–20; TEMP 36.4–37; O2SAT 92–100
[2023-07-03 04:35] LABS: Hematocrit 23.6 % (37.0-47.0); Hemoglobin 7.2 g/dL (12.0-15.0); Mean Corpuscular HGB Conc 30.5 g/dl (32-36); Mean Corpuscular Hemoglobin 29.1 pg (26-34); Mean Corpuscular Volume 95.5 fl (80-100); Platelet Count Result 180 k/mm3 (150-375); Red Blood Count 2.47 M/mm3 (4.2-5.4); Red Cell Distribution Width 18.6 % (11.5-14.5); White Blood Count 4.6 K/mm3 (4.5-10.0)
[2023-07-03 04:52] LABS: Anion Gap 1 mmol/L (4-12); Blood Urea Nitrogen 29 mg/dL (7-17); Calcium 8.5 mg/dL (8.4-10.2); Carbon Dioxide 26 mmol/L (22-30); Chloride 110 mmol/L (98-107); Estimated CRCL calculation 28 ml/min; Estimated Glomerular Filt Rate 34; Glucose 99 mg/dL (65-110); Potassium 4.3 mmol/L (3.4-5.0); Sodium 137 mmol/L (137-145)
[2023-07-03 08:03] LABS: Glucose Point of Care 116 mg/dl (65-105)
[2023-07-03] MEDS: LIDOCAINE 5% PATCH 1 PATCH TRANSDERM (08:11)
[2023-07-03] MEDS: GABAPENTIN 300 MG CAPSULE PO ×3 (08:11→16:24)
[2023-07-03 10:59] LABS: Iron 54 ug/dL (37-170)
[2023-07-03 11:11] LABS: Percent Iron Saturation 21 % (20-50)
[2023-07-03 11:42] LABS: Glucose Point of Care 139 mg/dl (65-105)
[2023-07-03 11:42] LABS: Glucose Point of Care 163 mg/dl (65-105)
[2023-07-03 13:40] LABS: Folic Acid 11.8 ng/mL (2.76->20)
--- NOTE | 2023-07-03 13:57 | PDONCCN ---
HPI - Date of Consult Date/Time: 07/03/23 13:57 Requesting Physician: Vin Douglas DO Primary Care Provider: PHYSICIAN NOT ON STAFF - Consult Narrative Reason for consult: Anemia and breast cancer Narrative: Vanita Blackwood is a 72 year old female with a past medical history of HTN, HLD, CKD, CLYDE, COPD, CAD, Afib, DJD, NSCLC, DM, stroke, and metastatic breast cancer. She was admitted to the hospital for low blood pressure and falls from [facility] where she was placed after having her stroke. Her hemoglobin upon admission was 4.4. She received 2 units of blood. She reported melena stools and received an EGD which showed duodenitis with petechia without active bleeding. Eliquis has been on hold. Per my chart review, she was followed with Dr. Tenorio at [facility] (last appt August 2022), but cancelled all appts after her eye surgery got cancelled in September 2022. She was offered palliative care vs hospice and declined all options at that time. Labs are notable for WBC 4.6, Hgb 7.2, Hct 23.6, and Plt 180. Iron studies WNL. She is feeling better today. She would like to not go back to [facility] and would like to go home after discharge. She denies any bleeding, bruising, fatigue, fevers, chills, or body aches. Review of Systems - Review of Systems All systems reviewed & are unremarkable except as noted in HPI and bel - Neurologic Reports hearing normal, Reports weakness, Denies behavioral changes, Denies headache(s) [facility] Medical History: Medical History (Last Updated 07/03/23 @ 15:57 by Lance Menendez MD) Acute on chronic anemia Breast cancer Status post bilateral mastectomy with chemo radiation. She has metastatic disease to bones and right orbit. Stopped treatment in September 2021. Carcinoma of breast metastatic to bone Cerebrovascular accident Chronic kidney disease Chronic obstructive pulmonary disease Coronary artery disease Diverticulitis Hyperlipidemia Hypertension Kidney stones Melena Obstructive sleep apnea Does not use CPAP. Paroxysmal atrial fibrillation Tobacco abuse Type 2 diabetes mellitus Surgical History: Surgical History (Last Reviewed 07/01/23 @ 21:28 by Nohemi Grace PA-C) History of bilateral mastectomy Onset Date: 2015 History of colonoscopy with polypectomy History of coronary artery stent placement History of permanent cardiac pacemaker placement Family History: Family History (Last Reviewed 07/01/23 @ 21:28 by Nohemi Grace PA-C) Father , Onset Age: 45 Mother , Onset Age: 65 Breast cancer Sibling , Onset Age: 50 Brain cancer Daughter , Onset Age: 41 Heroin overdose Daughter Alcoholism - Social History Social History: Social History (Last Reviewed 07/01/23 @ 21:28 by Nohemi Grace PA-C) Alcohol Use: Alcohol intake: never Drinks per week: 0 Substance Use: Substance use: never Substance use type: does not use Others: Spiritual care concerns: No Smoking Status: Smoking status: Former smoker Tobacco type: cigarettes Second hand tobacco smoke exposure: No Smoking Pack-years: Smoking packs per day: 1 Smoking cigarettes per day: 20.0 Years smoked: 47 Smoking pack-years: 47.00 Social Determinants of Health: Do You Feel Safe in your Home?: No Has the Lack of Transportation Kept You From Medical Appointments or From Getting Medications?: No Within the Past 12 Months, Were You Worried Whether Your Food Would Run Out Before You Got Money to Buy More?: Never True What is Your Housing Situation Today?: I Have Housing Are You Worried That in the Next 2 Months, You May Not Have Your Own Housing to Live In?: No Do You Have Trouble Paying Your Heating Or Electricity Bill?: No Do You Have Trouble Paying For Medicines?: No Are You Currently Unemployed and Looking for Work?: No Highest Level of Education Completed: Tr
--- NOTE | 2023-07-03 14:21 | PM.IMPN ---
Progress Note: A&P Assessment and Plan (1) Acute on chronic anemia: Code(s): D64.9 - Anemia, unspecified Status: Acute (2) Melena: Code(s): K92.1 - Melena Status: Acute (3) Anemia: Code(s): D64.9 - Anemia, unspecified Status: Acute Plan # acute on chronic anemia -patient has anemia of chronic disease secondary to her malignancy -patient EGD with Dr. 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 Baseline hemoglobin around 9-10. Hgb 7.2 -melena? however EGD showed no obvious source of bleed -hematology consulted 07/02 # mechanical fall # pathological T2 spinous process fracture -likely syncope from anemia -continue monitor, orthostatic vitals negative -patient has a fracture of her spinous processes of thoracic vertebrae, continue supportive -PT and OT for weakness # chronic conditions -metastatic breast disease to liver and bone (has seen Dr. Tenorio at [facility] 08/2022) -allergies: loratadine -type 2 diabetes: Sliding scale insulin, Accu-Cheks a.c. HS, hypoglycemia protocol, A1c 8.6. at home on sitagliptin -peripheral neuropathy diabetic neuropathy continue gabapentin -chronic constipation: bisacodyl, magnesium citrate, milk of magnesium -essential hypertension: Norvasc -paroxysmal atrial fibrillation: Holding anticoagulation with bleed concern, anemia -CKD 3B: Cr 1.5, baseline around 1.3-1.5 Diet: Diabetic diet DVT prophylaxis: SCDs, avoid chemoprophylaxis with anemia Code status: Full code Disposition: home pending PT eval in > 2 days Time Spent With Patient Time: 35 minutes Subjective Date/time seen: 07/03/23 14:21 Interval history: Patient seen and examined. Unclear where anemia is from with patient's EGD showed only duodenitis with no bleeding. Hemoglobin 7.2. Oncology follows patient for known metastatic breast cancer. Patient to work with PT and OT, she still right foot drop which is chronic. Patient has fever, chills, nausea vomiting diarrhea. She endorses pain in her right hip. Review of Systems Review of Systems: 10 point ROS complete, negative other than what is specified in HPI. Exam Narrative: - GENERAL: Pleasant woman no acute distress - EYES: EOMI. right eye does not open - HENT: Moist mucous membranes. - LUNGS: Clear to auscultation bilaterally, no wheezing, rhonchi, or rales. - CARDIOVASCULAR: Regular rate and rhythm. No murmur. No JVD. - ABDOMEN: Soft, non-tender and non-distended. No palpable masses. - EXTREMITIES: No edema. Peripheral pulses 2+. Non-tender. right foot drop present - NEUROLOGIC: No focal neurological deficits. CN II-XII grossly intact. - PSYCHIATRIC: Awake, Alert and oriented x 3. Appropriate mood and affect. - SKIN: No rashes or lesions. Warm. jaundice - LYMPH: No cervical lymphadenopathy. Objective Data Vital Signs Vital Signs: Vital Signs - 24 hr 07/02/23 15:45 07/02/23 16:00 07/02/23 15:32 Temperature 36.6 C Pulse Rate 92 79 Respiratory Rate 14 Blood Pressure 120/42 L Pulse Oximetry 93 Oxygen Delivery Room Air 07/02/23 19:49 07/02/23 20:00 07/02/23 20:00 Temperature 36.6 C Pulse Rate 84 80 Respiratory Rate 20 Blood Pressure 128/76 Pulse Oximetry 98 Oxygen Delivery Room Air 07/03/23 00:00 07/03/23 04:29 07/03/23 04:00 Temperature 36.8 C Pulse Rate 77 73 76 Respiratory Rate 18 Blood Pressure 138/52 L Pulse Oximetry 93 Oxygen Delivery 07/03/23 07:41 07/03/23 08:00 07/03/23 08:00 Temperature 37.0 C Pulse Rate 101 H 93 Respiratory Rate 20 Blood Pressure 142/47 H Pulse Oximetry 92 92 Oxygen Delivery Room Air 07/03/23 11:38 07/03/23 12:00 Temperature Pulse Rate 110 H Respiratory Rate Blood Pressure Pulse Oximetry Oxygen Delivery Room Air Intake/Output Intake/Output: Intake & Output 06/30/23 07/01/23 07/02/23 07/03/23
--- NOTE | 2023-07-03 15:54 | WPDGIPROGNO ---
Progress Note: A&P Assessment and Plan (1) Acute on chronic anemia: Code(s): D64.9 - Anemia, unspecified Status: Acute Assessment and Plan: anemia probably from metastatic disease, ckd, also found duodenitis with petechia without active bleeding holding blood thinner, continue with ppi daily oncology on board prognosis is guarded will follow [place] (2) Melena: Code(s): K92.1 - Melena Status: Acute (3) Chronic kidney disease: Code(s): N18.9 - Chronic kidney disease, unspecified Status: Chronic (4) Carcinoma of breast metastatic to bone: Code(s): C50.919 - Malignant neoplasm of unspecified site of unspecified female breast; C79.51 - Secondary malignant neoplasm of bone Status: Acute Subjective Date/time seen: 07/03/23 15:54 Interval history: egd duodenitis with petechia without active bleeding no changes today Review of Systems Review of Systems: All systems reviewed & are unremarkable except as noted in HPI and below Exam Const: General: comfortable and no acute distress Other: chronically ill appearing HENMT: Face/Nose/Sinus: Normal nares present Eyes: General: appearance normal, both eyes and all related structures Neck: Neck: no JVD Resp: Auscultation: clear to auscultation bilaterally Cardio: Rate: regular rate Rhythm: regular rhythm GI: Inspection: non-distended GI Palp: Yes Soft to palpation and No Tenderness to palpation present (GI) Auscultation: normal bowel sounds Skin: Other: pallor Neuro: Speech: normal speech Motor exam (neuro): 5/5 motor strength present throughout Extrem: General: normal to inspection Psych: Mental Status: mental status grossly normal Objective Data Vital Signs Vital Signs: Vital Signs - 24 hr 07/02/23 16:00 07/02/23 19:49 07/02/23 20:00 Temperature 98 F Pulse Rate 92 84 80 Respiratory Rate 20 Blood Pressure 128/76 Pulse Oximetry 98 Oxygen Delivery 07/02/23 20:00 07/03/23 00:00 07/03/23 04:29 Temperature 98.2 F Pulse Rate 77 73 Respiratory Rate 18 Blood Pressure 138/52 L Pulse Oximetry 93 Oxygen Delivery Room Air 07/03/23 04:00 07/03/23 07:41 07/03/23 08:00 Temperature 98.6 F Pulse Rate 76 101 H 93 Respiratory Rate 20 Blood Pressure 142/47 H Pulse Oximetry 92 Oxygen Delivery 07/03/23 08:00 07/03/23 11:38 07/03/23 12:00 Temperature Pulse Rate 110 H Respiratory Rate Blood Pressure Pulse Oximetry 92 Oxygen Delivery Room Air Room Air Intake/Output Intake/Output: Intake & Output 06/30/23 07/01/23 07/02/23 07/03/23 23:59 23:59 23:59 23:59 Intake Total 1665 1265.0 560 Output Total 450 400 Balance 1665 815.0 160 Meds/Results Medications: Active Medications Generic Name Dose Route Start Last Admin Trade Name Freq PRN Reason Stop Dose Admin Dextrose 12.5 gm 07/01/23 18:07 Dextrose 50% 25 Gm/50 Ml Syringe IV PUSH PRN PRN Hypoglycemia Protocol Gabapentin 300 mg 07/01/23 18:15 07/03/23 11:53 Gabapentin 300 Mg Capsule PO 300 mg TID MARU Administration Glucagon 1 mg 07/01/23 18:07 Glucagon For Inj 1 Mg Vial IM PRN PRN Hypoglycemia Protocol Glucose 15 gm 07/01/23 18:07 Glucose Oral Gel 15 Gm Of Glucse In 37.5 Gm Tube PO PRN PRN Hypoglycemia Protocol Dextrose 1,000 mls @ 100 mls/hr 07/01/23 18:07 Dextrose 5% 1,000 Ml IVPB PRN PRN Hypoglycemia Protocol Insulin Aspart 2 - 5 units 07/02/23 12:05 07/03/23 11:53 Insulin Aspart (*Bkc) 100 Units/Ml SUB-Q Not Given TIDWM MARU Protocol Lidocaine 1 patch 07/02/23 09:00 07/03/23 08:11 Lidocaine 5% Patch TRANSDERM 1 patch DAILY MARU Administration Loratadine 10 mg 07/01/23 21:00 07/02/23 20:58 Loratadine 10 Mg Tablet PO 10 mg HS MARU Administration Ondansetron HCl 4 mg 07/01/23 13:31 Ondansetron Inj 4 Mg/2 Ml Vial
[2023-07-03] MEDS: ACETAMINOPHEN 325 MG TABLET 650 MG PO (16:24)
[2023-07-03] MEDS: INSULIN ASPART (*BKC) 100 UNITS/ML SUB-Q (16:24)
[2023-07-03 16:43] LABS: Glucose Point of Care 201 mg/dl (65-105)
[2023-07-03] MEDS: EPOETIN ALFA 20,000 UNITS/ML VIAL 20000 UNITS SUB-Q (16:51)
[2023-07-03] MEDS: FERROUS SULFATE 325 MG TABLET DR PO (16:54)
[2023-07-03 20:39] LABS: Glucose Point of Care 219 mg/dl (65-105)
[2023-07-03] MEDS: LORATADINE 10 MG TABLET PO (21:08)
[2023-07-04] VITALS (8 sets, daily range): BP systolic 135–170; BP diastolic 54–80; PULSE 79–115; RESP 16–20; TEMP 36.1–36.7; O2SAT 91–97
[2023-07-04] MEDS: MORPHINE SULFATE (*CRX) 2 MG/ML INJ IV PUSH (00:30)
[2023-07-04 05:05] LABS: Hematocrit 25.6 % (37.0-47.0); Hemoglobin 7.9 g/dL (12.0-15.0); Mean Corpuscular HGB Conc 30.9 g/dl (32-36); Mean Corpuscular Hemoglobin 29.2 pg (26-34); Mean Corpuscular Volume 94.5 fl (80-100); Mean Platelet Volume 10.2 fl (7.4-10.4); Platelet Count Result 178 k/mm3 (150-375); Red Blood Count 2.71 M/mm3 (4.2-5.4); White Blood Count 4.2 K/mm3 (4.5-10.0)
[2023-07-04 05:20] LABS: Anion Gap 1 mmol/L (4-12); Blood Urea Nitrogen 27 mg/dL (7-17); Carbon Dioxide 28 mmol/L (22-30); Chloride 107 mmol/L (98-107); Estimated CRCL calculation 26 ml/min; Estimated Glomerular Filt Rate 32; Glucose 111 mg/dL (65-110); Magnesium 2.1 mg/dL (1.6-2.3); Potassium 4.5 mmol/L (3.4-5.0); Sodium 136 mmol/L (137-145)
[2023-07-04 08:40] LABS: Glucose Point of Care 111 mg/dl (65-105)
[2023-07-04] MEDS: CYANOCOBALAMIN 500 MCG TABLET PO (08:53)
[2023-07-04] MEDS: GABAPENTIN 300 MG CAPSULE PO ×3 (08:53→17:05)
[2023-07-04] MEDS: FERROUS SULFATE 325 MG TABLET DR PO ×2 (08:53→17:05)
[2023-07-04] MEDS: LIDOCAINE 5% PATCH 1 PATCH TRANSDERM (08:54)
[2023-07-04] MEDS: ACETAMINOPHEN 325 MG TABLET 650 MG PO (08:55)
[2023-07-04] MEDS: ONDANSETRON INJ 4 MG/2 ML VIAL IV PUSH (08:56)
[2023-07-04 12:21] LABS: Glucose Point of Care 219 mg/dl (65-105)
--- NOTE | 2023-07-04 12:45 | PM.IMPN ---
Progress Note: A&P Assessment and Plan (1) Acute on chronic anemia: Code(s): D64.9 - Anemia, unspecified Status: Acute (2) Melena: Code(s): K92.1 - Melena Status: Acute (3) Anemia: Code(s): D64.9 - Anemia, unspecified Status: Acute Plan # acute on chronic anemia -patient has anemia of chronic disease secondary to her malignancy -patient EGD with Dr. 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 Baseline hemoglobin around 9-10. Hgb 7.9 -melena? however EGD showed no obvious source of bleed -hematology consulted 07/02: workup ordered including CA 15-3 # mechanical fall # pathological T2 spinous process fracture -likely syncope from anemia -continue monitor, orthostatic vitals negative -patient has a fracture of her spinous processes of thoracic vertebrae, continue supportive -PT and OT for weakness # chronic conditions -metastatic breast disease to liver and bone (has seen Dr. Tenorio at [facility] 08/2022) previously on ribociclib/letrozole -allergies: loratadine -type 2 diabetes: Sliding scale insulin, Accu-Cheks a.c. HS, hypoglycemia protocol, A1c 8.6. at home on sitagliptin -peripheral neuropathy diabetic neuropathy continue gabapentin -chronic constipation: bisacodyl, magnesium citrate, milk of magnesium -essential hypertension: Norvasc -paroxysmal atrial fibrillation: Holding anticoagulation with bleed concern, anemia -CKD 3B: Cr 1.6, baseline around 1.3-1.5 Diet: Diabetic diet DVT prophylaxis: SCDs, avoid chemoprophylaxis with anemia Code status: Full code Disposition: [facility] Subjective Date/time seen: 07/04/23 12:45 Interval history: patient seen examined. Hemoglobin stable at 7.9. Will continue supportive care and follow-up with Hematology for anemia workup. Patient work with PT and OT. Patient denies fever, chills, nausea vomiting or diarrhea. Her right leg pain is improved. Discharge to SNF soon. Review of Systems Review of Systems: All systems reviewed & are unremarkable except as noted in HPI and below Exam Narrative: - GENERAL: Pleasant woman no acute distress - EYES: EOMI. right eye does not open - HENT: Moist mucous membranes. - LUNGS: Clear to auscultation bilaterally, no wheezing, rhonchi, or rales. - CARDIOVASCULAR: Regular rate and rhythm. No murmur. No JVD. - ABDOMEN: Soft, non-tender and non-distended. No palpable masses. - EXTREMITIES: No edema. Peripheral pulses 2+. Non-tender. right foot drop present - NEUROLOGIC: Chronic right-sided weakness. CN II-XII grossly intact. - PSYCHIATRIC: Awake, Alert and oriented x 3. Appropriate mood and affect. - SKIN: No rashes or lesions. Warm. jaundice - LYMPH: No cervical lymphadenopathy. Objective Data Vital Signs Vital Signs: Vital Signs - 24 hr 07/03/23 16:00 07/03/23 16:00 07/03/23 20:00 Temperature 36.5 C Pulse Rate 94 89 Respiratory Rate 16 Blood Pressure 130/55 L Pulse Oximetry 100 Oxygen Delivery Room Air 07/03/23 20:00 07/03/23 20:00 07/04/23 00:00 Temperature 36.4 C L Pulse Rate 88 91 97 Respiratory Rate 18 Blood Pressure 147/60 H Pulse Oximetry 99 Oxygen Delivery 07/04/23 04:00 07/04/23 04:00 07/04/23 08:19 Temperature 36.1 C L Pulse Rate 95 80 108 H Respiratory Rate 16 Blood Pressure 153/77 H Pulse Oximetry 97 92 Oxygen Delivery Room Air 07/04/23 08:00 07/04/23 08:00 07/04/23 08:00 Temperature 36.5 C Pulse Rate 106 H 115 H Respiratory Rate 18 Blood Pressure 145/80 H Pulse Oximetry 91 Oxygen Delivery Room Air Intake/Output Intake/Output: Intake & Output 07/01/23 07/02/23 07/03/23 07/04/23 23:59 23:59 23:59 23:59 Intake Total 1665 1265.0 800 400 Output Total 450 1300 1200 Balance 1665 815.0 -500 -800 Meds/Results Medications: Active Medications Generic Name Dose Route Start Last Admin Trade Name Garland
[2023-07-04] MEDS: polyethylene glycoL 3350 17 GM POWD.PACK PO (13:45)
[2023-07-04] MEDS: SENNA/DOCUSATE SODIUM TABLET 1 TAB PO ×2 (13:45→21:24)
[2023-07-04 17:04] LABS: Glucose Point of Care 185 mg/dl (65-105)
--- NOTE | 2023-07-04 17:54 | PC.NURSE ---
This patient, Vanita Blackwood, was transferred to [ [id number]] on 07/04/23 at 1754. Personal belongings sent with patient. Report given to [ Cathie]. Appropriate documentation sent with patient.
--- NOTE | 2023-07-04 18:13 | PC.NURSE ---
This patient, Vanita Blackwood, was received from [ [id number]] on 07/04/23 at 1803. Patient/family oriented to unit policies and routines
[2023-07-04] MEDS: LORATADINE 10 MG TABLET PO (21:24)
[2023-07-05] VITALS (11 sets, daily range): BP systolic 131–152; BP diastolic 45–72; PULSE 76–132; RESP 18–20; TEMP 36.3–36.6; O2SAT 95–99
[2023-07-05 03:42] LABS: Glucose Point of Care 167 mg/dl (65-105)
[2023-07-05] MEDS: FERROUS SULFATE 325 MG TABLET DR PO ×2 (08:00→17:21)
[2023-07-05] MEDS: GABAPENTIN 300 MG CAPSULE PO ×3 (08:01→17:21)
[2023-07-05] MEDS: CYANOCOBALAMIN 500 MCG TABLET PO (08:01)
[2023-07-05] MEDS: LIDOCAINE 5% PATCH 1 PATCH TRANSDERM (08:01)
[2023-07-05 08:20] LABS: Glucose Point of Care 108 mg/dl (65-105)
[2023-07-05] MEDS: PANTOPRAZOLE 40 MG TABLET PO (08:59)
[2023-07-05] MEDS: FOLIC ACID 1 MG TABLET PO (09:00)
[2023-07-05] MEDS: amLODIPine BESYLATE 5 MG TABLET PO (09:00)
[2023-07-05 09:32] LABS: Anion Gap 4 mmol/L (4-12); Blood Urea Nitrogen 24 mg/dL (7-17); Carbon Dioxide 27 mmol/L (22-30); Chloride 104 mmol/L (98-107); Estimated CRCL calculation 26 ml/min; Estimated Glomerular Filt Rate 37; Glucose 163 mg/dL (65-110); Potassium 4.6 mmol/L (3.4-5.0); Sodium 135 mmol/L (137-145)
[2023-07-05 09:36] LABS: Hematocrit 26.9 % (37.0-47.0); Hemoglobin 8.3 g/dL (12.0-15.0); Mean Corpuscular HGB Conc 30.9 g/dl (32-36); Mean Corpuscular Hemoglobin 29.6 pg (26-34); Mean Corpuscular Volume 96.1 fl (80-100); Mean Platelet Volume 10.4 fl (7.4-10.4); Platelet Count Result 192 k/mm3 (150-375); Red Cell Distribution Width 17.7 % (11.5-14.5); White Blood Count 5.2 K/mm3 (4.5-10.0)
--- NOTE | 2023-07-05 10:25 | PM.IMPN ---
Progress Note: A&P Assessment and Plan (1) Acute on chronic anemia: Code(s): D64.9 - Anemia, unspecified Status: Acute (2) Melena: Code(s): K92.1 - Melena Status: Acute (3) Anemia: Code(s): D64.9 - Anemia, unspecified Status: Acute Plan # acute on chronic anemia -patient has anemia of chronic disease secondary to her malignancy -patient EGD with Dr. 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 Baseline hemoglobin around 9-10. hgb 8.3 -melena? however EGD showed no obvious source of bleed -hematology consulted 07/02: workup ordered including CA 15-3 # mechanical fall # pathological T2 spinous process fracture -likely syncope from anemia -continue monitor, orthostatic vitals negative -patient has a fracture of her spinous processes of thoracic vertebrae, continue supportive -PT and OT for weakness # chronic conditions -metastatic breast disease to liver and bone (has seen Dr. Tenorio at [facility] 08/2022) previously on ribociclib/letrozole -allergies: loratadine -type 2 diabetes: Sliding scale insulin, Accu-Cheks a.c. HS, hypoglycemia protocol, A1c 8.6. at home on sitagliptin -peripheral neuropathy diabetic neuropathy continue gabapentin -chronic constipation: bisacodyl, magnesium citrate, milk of magnesium -essential hypertension: Norvasc -paroxysmal atrial fibrillation: Holding anticoagulation with bleed concern, anemia -CKD 3B: Cr 1.6, baseline around 1.3-1.5 Diet: Diabetic diet DVT prophylaxis: SCDs, avoid chemoprophylaxis with anemia Code status: Full code Disposition: SNF, medically stable (awaiting heme follow up and placement) Subjective Date/time seen: 07/05/23 10:25 Interval history: Patient seen examined. She is doing well with no new complaints. Hgb 8.3. labs and vitals are stable. We are awaiting Hematology follow-up. Patient denies fever, chills, nausea, vomiting, dizziness, lightheadedness, shortness of breath. Review of Systems Review of Systems: All systems reviewed & are unremarkable except as noted in HPI and below Exam Narrative: - GENERAL: Pleasant woman no acute distress - EYES: EOMI. right eye does not open - HENT: Moist mucous membranes. - LUNGS: Clear to auscultation bilaterally, no wheezing, rhonchi, or rales. - CARDIOVASCULAR: Regular rate and rhythm. No murmur. No JVD. - ABDOMEN: Soft, non-tender and non-distended. No palpable masses. - EXTREMITIES: No edema. Peripheral pulses 2+. Non-tender. right foot drop present - NEUROLOGIC: Chronic right-sided weakness. CN II-XII grossly intact. - PSYCHIATRIC: Awake, Alert and oriented x 3. Appropriate mood and affect. - SKIN: No rashes or lesions. Warm. jaundice - LYMPH: No cervical lymphadenopathy. Objective Data Vital Signs Vital Signs: Vital Signs - 24 hr 07/04/23 12:00 07/04/23 16:00 07/04/23 16:00 Temperature 36.6 C Pulse Rate 105 H 98 79 Respiratory Rate 20 Blood Pressure 135/54 L Pulse Oximetry 95 Oxygen Delivery 07/04/23 18:18 07/04/23 20:00 07/04/23 22:39 Temperature 36.7 C 36.3 C L Pulse Rate 105 H 92 Respiratory Rate 17 18 Blood Pressure 170/71 H 149/71 H Pulse Oximetry 95 96 Oxygen Delivery Room Air 07/05/23 00:00 07/05/23 04:00 07/05/23 06:00 Temperature 36.3 C L Pulse Rate 80 76 82 Respiratory Rate 18 Blood Pressure 149/72 H Pulse Oximetry 96 Oxygen Delivery 07/05/23 09:06 07/05/23 08:01 07/05/23 08:01 Temperature Pulse Rate 95 Respiratory Rate 18 Blood Pressure Pulse Oximetry 95 95 Oxygen Delivery Room Air Room Air Intake/Output Intake/Output: Intake & Output 07/02/23 07/03/23 07/04/23 07/05/23 23:59 23:59 23:59 23:59 Intake Total 1265.0 800 2300 740 Output Total 450 1300 2700 1500 Balance 815.0 -500 -400 -760 Meds/Results Medications: Active Medications Generic Name Dose Route Start Last Admi
[2023-07-05 11:53] LABS: Glucose Point of Care 128 mg/dl (65-105)
--- NOTE | 2023-07-05 13:50 | PC.NURSE ---
On 07/05/23, the student, [Patricia Villeda], provided care and completed [facility] documentation on this patient. I have reviewed the student's documentation and agree with the findings.
--- NOTE | 2023-07-05 14:43 | PC.NURSE ---
On 07/05/23, the student, [Valerie Garza], provided care and completed [facility] patient. I have reviewed the student's documentation and agree with the findings.
[2023-07-05 17:13] LABS: Glucose Point of Care 129 mg/dl (65-105)
[2023-07-05] MEDS: LORATADINE 10 MG TABLET PO (20:46)
[2023-07-05] MEDS: SENNA/DOCUSATE SODIUM TABLET 1 TAB PO (20:46)
[2023-07-06] VITALS: PULSE 78
[2023-07-06 04:00] VITALS: PULSE 75
[2023-07-06 06:00] VITALS: BP 136/54; PULSE 93; RESP 21; TEMP 36.4; O2SAT 100
[2023-07-06 06:05] LABS: Hematocrit 29.4 % (37.0-47.0); Hemoglobin 8.9 g/dL (12.0-15.0); Mean Corpuscular HGB Conc 30.3 g/dl (32-36); Mean Corpuscular Volume 95.8 fl (80-100); Mean Platelet Volume 10.5 fl (7.4-10.4); Platelet Count Result 227 k/mm3 (150-375); Red Blood Count 3.07 M/mm3 (4.2-5.4); Red Cell Distribution Width 17.8 % (11.5-14.5); White Blood Count 5.9 K/mm3 (4.5-10.0)
[2023-07-06 06:19] LABS: Anion Gap 3 mmol/L (4-12); Blood Urea Nitrogen 22 mg/dL (7-17); Calcium 9.4 mg/dL (8.4-10.2); Carbon Dioxide 30 mmol/L (22-30); Chloride 104 mmol/L (98-107); Estimated CRCL calculation 26 ml/min; Estimated Glomerular Filt Rate 37; Glucose 127 mg/dL (65-110); Potassium 4.4 mmol/L (3.4-5.0); Sodium 137 mmol/L (137-145)
[2023-07-06 07:26] LABS: Glucose Point of Care 169 mg/dl (65-105)
[2023-07-06 08:00] VITALS: PULSE 99
[2023-07-06 08:04] LABS: Glucose Point of Care 129 mg/dl (65-105)
[2023-07-06] MEDS: CYANOCOBALAMIN 500 MCG TABLET PO (08:57)
[2023-07-06] MEDS: GABAPENTIN 300 MG CAPSULE PO (08:58)
[2023-07-06] MEDS: LIDOCAINE 5% PATCH 1 PATCH TRANSDERM (08:58)
[2023-07-06] MEDS: PANTOPRAZOLE 40 MG TABLET PO (08:58)
[2023-07-06] MEDS: FOLIC ACID 1 MG TABLET PO (08:58)
[2023-07-06] MEDS: amLODIPine BESYLATE 5 MG TABLET PO (08:58)
[2023-07-06] MEDS: FERROUS SULFATE 325 MG TABLET DR PO (08:58)
--- NOTE | 2023-07-06 09:48 | PM.DS ---
DS: Admitting Diagnosis Discharge Date July 06, 2023 Admitting Diagnosis Fall at home DS: Discharge Diagnosis Discharge Diagnosis (1) Atrial fibrillation: Code(s): I48.91 - Unspecified atrial fibrillation Status: Chronic (2) Acute on chronic anemia: Code(s): D64.9 - Anemia, unspecified Status: Acute DS: Summary Hospital Course Hospital Course: This is a very pleasant 72-year-old female with a past medical history chronic anemia, svs-biwlmsy-lhcabtyza 2 diabetes mellitus, diabetic neuropathy, CKD stage IIIB, essential hypertension, chronic constipation, paroxysmal atrial fibrillation on apixaban, metastatic breast disease to liver and bone letrozole and Ibrance discontinued 06/2022 presenting after a fall at home. She reports she had slid to the floor from her wheelchair. The patient was able to participate with PT and OT and on 07/05 and is discharged in improved condition to [facility]. She was found to have a fracture of her spinous process of T2. On admission hemoglobin found to be 4.4 grams/deciliter. Her baseline around 8-10. EGD on 07/01 demonstrating duodenitis with moderate petechiae but otherwise no active bleeding. Status post 2 units PRBC her hemoglobin has stabilized on discharge being 8.9. Clot versus bleeding risks discussed with the patient and she requested that she be placed on a lower dose of her blood thinner. Coincidentally she is 61 kg and her serum creatinine can be above 1.5. Aspirin discontinued. Heme oncology consulted for her anemia patient was started on Procrit 11060 units on a biweekly basis. She is to follow-up with Dr. Gillespie and her usual oncologist at [facility] for other cancer mgmt. She was full code during her admission. Time Spent with Patient Time attestation: Total time spent providing and/or coordinating discharge services: Exam Const: General: cooperative and no acute distress Resp: Effort & Inspection: normal respiratory effort Auscultation: clear to auscultation bilaterally Cardio: Rate: regular rate Rhythm: regular rhythm Heart sounds: S1 normal heart sound present and S2 normal heart sound present GI: GI Palp: No abdominal tenderness Auscultation: normal bowel sounds DS: Data Data Completed and Pending Labs on day of discharge: Labs from last 24 hours 07/06/23 07/06/23 07/05/23 07:57 05:05 20:42 WBC 5.9 RBC 3.07 L Hgb 8.9 L Hct 29.4 L MCV 95.8 MCH 29.0 MCHC 30.3 L RDW 17.8 H Plt Count 227 MPV 10.5 H Sodium 137 Potassium 4.4 Chloride 104 Carbon Dioxide 30 Anion Gap 3 L BUN 22 H Creatinine 1.40 H Estim Creat Clear Calc 26 Estimated GFR 37 L Glucose 127 H POC Capillary Glucose 129 H 169 H Calcium 9.4 Magnesium 2.0 07/05/23 07/05/23 17:04 11:49 WBC RBC Hgb Hct MCV MCH MCHC RDW Plt Count MPV Sodium Potassium Chloride Carbon Dioxide Anion Gap BUN Creatinine Estim Creat Clear Calc Estimated GFR Glucose POC Capillary Glucose 129 H 128 H Calcium Magnesium Discharge Plan Discharge Attending physician on discharge: Ijeoma Warner Consulting providers: Lance Menendez; Jaclyn Carlos Discharging Clinician: Ijeoma Warner Patient Disposition: SNF Activity: july shower Diet: diabetic Discharge Instructions: Patient was given office information to follow up with an appointment at the [place] [address] [address] [place] upon discharge. Please call our office number ([phone]) to make a follow up appointment regarding anemia. Patient Instructions: Epoetin Efren (By injection) Stand Alone Forms: General Discharge Information Discharge Medications: New cyanocobalamin (vitamin B-12) [Vitamin B-12] 500 mcg Tablet 500 mcg PO QAM Qty: 30 0RF apixaban 2.5 mg tablet 2.5 mg PO BID Qty: 60 0RF ferrous sulfate 325 mg (
[2023-07-06 11:51] LABS: Glucose Point of Care 182 mg/dl (65-105)
[2023-07-06 12:06] LABS: SARS-CoV-2 RNA PCR Negative (Negative)
[2023-07-09 09:04] LABS: Methylmalonic Acid 1467 nmol/L (87-318)
[2023-07-10 06:24] LABS: CA 15-3 446 U/mL (<32)
== END 2023-07-06 12:52 ==
LOC: ANHED 13:04 → ANHIMU 19:33 → ANH2MED 07-06 09:40 → ANHIMU 07-09 09:31
PROVIDERS: Internal Medicine; Internal Medicine Gastroenterology; Nurse Practitioner Family; Admitting Provider Student in an Organized Health Care Education/Training Program; Emergency Provider Emergency Medicine; Visit Provider General Practice
PROC: 0DJ08ZZ Inspection of Upper Intestinal Tract, Via Natural or Artificial Opening Endoscopic (ICD-10-PCS; CPT 43235; principal; 2023-07-02 15:00)
DX: D64.9 Anemia, unspecified (principal); K29.80 Duodenitis without bleeding; I95.9 Hypotension, unspecified; M84.48XA Pathological fracture, other site, initial encounter for fracture; W05.0XXA Fall from non-moving wheelchair, initial encounter; C50.919 Malignant neoplasm of unspecified site of unspecified female breast; C79.51 Secondary malignant neoplasm of bone; C78.7 Secondary malignant neoplasm of liver and intrahepatic bile duct; D63.8 Anemia in other chronic diseases classified elsewhere; M79.89 Other specified soft tissue disorders; I12.9 Hypertensive chronic kidney disease with stage 1 through stage 4 chronic kidney disease, or unspecified chronic kidney disease; E11.22 Type 2 diabetes mellitus with diabetic chronic kidney disease; N18.32 Chronic kidney disease, stage 3b; M21.371 Foot drop, right foot; E11.42 Type 2 diabetes mellitus with diabetic polyneuropathy; E78.00 Pure hypercholesterolemia, unspecified; J44.9 Chronic obstructive pulmonary disease, unspecified; G47.33 Obstructive sleep apnea (adult) (pediatric); I48.0 Paroxysmal atrial fibrillation; I25.10 Atherosclerotic heart disease of native coronary artery without angina pectoris; K59.09 Other constipation; Z11.52 Encounter for screening for COVID-19; Z92.3 Personal history of irradiation; Z92.21 Personal history of antineoplastic chemotherapy; Z86.73 Personal history of transient ischemic attack (TIA), and cerebral infarction without residual deficits; Z95.5 Presence of coronary angioplasty implant and graft; Z95.0 Presence of cardiac pacemaker; Z85.3 Personal history of malignant neoplasm of breast; Z90.13 Acquired absence of bilateral breasts and nipples; Z87.891 Personal history of nicotine dependence; Z79.01 Long term (current) use of anticoagulants; Z79.82 Long term (current) use of aspirin; Z79.84 Long term (current) use of oral hypoglycemic drugs
CPT/HCPCS: 43235; 36415; 36430; 70450; 70486; 72125; 72128; 72131; 80048; 80053; 82607; 82728; 82746; 82948; 83540; 83550; 83735; 83921; 84238; 85014; 85018; 85025; 85027; 86300; 86850; 86900; 86901; 86923; 87635; 93005; 93971; 96361; 96374; 96375; 97110; 97161; 97166; 97530; 97535; 99285; A9270; C9113; G0378; J1170; J1200; J1815; J2060; J2270; J2405; J2704; J2765; J7030; J7050; J7120; P9016; Q4081